=== PATIENT | male | born 1965 | race Two or more races ===

== ENCOUNTER 2021-10-27 10:22 | Outpatient (RCR) | payer MEDICARE, BC, SELFPAY ==
--- NOTE | ~2021-10-27 | XR_ITS ---
EXAMINATION: XR FOOT, RIGHT CLINICAL INFORMATION: Nonhealing wound right foot. COMPARISON: None TECHNIQUE: AP, lateral, and oblique views of the right foot. FINDINGS: There is a soft tissue ill-defined opacity and skin thickening along the right lateral heel and likely soft tissue bandage but no soft tissue mass or gas collection seen. There is no periosteal elevation or thickening. The rest of the right foot is normal. The ankle mortise and subtalar joints are normal. There is a small retrocalcaneal enthesophyte XR/XR foot RT min 3V IMPRESSION: Soft tissue irregularity along the lateral heel likely nonhealing wound. However, there is no gas or mass seen to suspect any infectious collection or abscess. No periosteal thickening either involving the calcaneum or the foot bones. There are vascular calcifications present throughout the foot.
== END 2022-02-03 13:34 | disposition home or self-care (01) ==
LOC: HO.WCC 10:22
PROVIDERS: Visit Provider Physician Assistant
DX: E11.621 Type 2 diabetes mellitus with foot ulcer (principal); L97.412 Non-pressure chronic ulcer of right heel and midfoot with fat layer exposed; E11.51 Type 2 diabetes mellitus with diabetic peripheral angiopathy without gangrene; E11.22 Type 2 diabetes mellitus with diabetic chronic kidney disease; I12.0 Hypertensive chronic kidney disease with stage 5 chronic kidney disease or end stage renal disease; N18.6 End stage renal disease; Z95.1 Presence of aortocoronary bypass graft
CPT/HCPCS: 11042; 73630; 99213

== ENCOUNTER 2021-11-13 00:40 | Inpatient (IN) | payer MEDICARE, MEDICAID, SELFPAY ==
[2021-11-13] VITALS (39 sets, daily range): BP systolic 69–166; BP diastolic 25–77; PULSE 62–190; RESP 12–30; TEMP 36.2–36.7; O2SAT 96–100; BMI 33.5; BMI 32.5
--- NOTE | ~2021-11-13 | XR_ITS ---
EXAMINATION: XR FOOT, LEFT XR FOOT, RIGHT CLINICAL INFORMATION: Osteomyelitis COMPARISON: 11/03/2021 TECHNIQUE: 3 views of each foot FINDINGS: Left foot: No fracture or dislocation. Alignment is anatomic. Joint spaces are maintained. Diffuse vascular calcifications. No ankle joint effusion. Heel spurs noted. No osseous erosion. Right foot: No fracture or dislocation. Persistent soft tissue irregularity along the lateral aspect of the heel. No osseous erosion. Joint spaces are maintained. Soft tissue swelling of the forefoot. XR/XR foot LT 2V IMPRESSION: Forefoot soft tissue swelling on the right with soft tissue irregularity at the lateral hindfoot, as seen on prior. Swelling is increased from prior. No associated acute osseous abnormality. No osseous erosion. No acute abnormality of the left foot.
--- NOTE | ~2021-11-13 | XR_ITS ---
EXAMINATION: XR FOOT, LEFT XR FOOT, RIGHT CLINICAL INFORMATION: Osteomyelitis COMPARISON: 11/03/2021 TECHNIQUE: 3 views of each foot FINDINGS: Left foot: No fracture or dislocation. Alignment is anatomic. Joint spaces are maintained. Diffuse vascular calcifications. No ankle joint effusion. Heel spurs noted. No osseous erosion. Right foot: No fracture or dislocation. Persistent soft tissue irregularity along the lateral aspect of the heel. No osseous erosion. Joint spaces are maintained. Soft tissue swelling of the forefoot. XR/XR foot RT 2V IMPRESSION: Forefoot soft tissue swelling on the right with soft tissue irregularity at the lateral hindfoot, as seen on prior. Swelling is increased from prior. No associated acute osseous abnormality. No osseous erosion. No acute abnormality of the left foot.
--- NOTE | ~2021-11-13 | XR_ITS ---
EXAMINATION: XR CHEST CLINICAL INFORMATION: Rule out pulmonary edema COMPARISON: None TECHNIQUE: Frontal view of the chest was obtained. FINDINGS: Median sternotomy wires appear intact. The lungs are well expanded. There is no focal consolidation, edema, or effusion. No pneumothorax. The cardiomediastinal silhouette is within normal limits. No acute osseous abnormality. XR/XR chest 1V IMPRESSION: No acute pulmonary finding.
[2021-11-13] MEDS: Sodium Bicarbonate 8.4% 50 MEQ/50 ML SYRINGE IVPUSH (00:48)
--- NOTE | 2021-11-13 00:51 | ED_ITS ---
HPI - General Adult General Chief complaint: Arrhythmia/Palpitations Stated complaint: VTACH Time Seen by Provider: 11/13/21 00:49 Source: EMS Mode of arrival: EMS Limitations: altered mental status History of Present Illness HPI narrative: Patient comes to the emergency room via EMS. Today around 21:30, patient told his family that he was not feeling well. Patient found him unresponsive, uncomfortable, pale and diaphoretic around midnight. EMS was called for a diabetic emergency . When EMS arrived and did an EKG leads, the rhythm showed V-tach. EMS was unable to get IV access. On arrival to the emergency room, Patient's blood pressure in the low 80s, diaphoretic, pale, very lethargic, pulse present, rhythm is sustained V-tach, heart rate 200, patient was emergently cardioverted with 120 joules. Patient is known to be a dialysis patient. Related Data Allergies Allergy/AdvReac Type Severity Reaction Status Date / Time No Known Allergies Allergy Verified 11/13/21 01:17 Review of Systems Review of Systems: Yes Unobtainable due to mental condition [facility] Past Medical History Medical History (Updated 11/13/21 @ 02:24 by Karen Burroughs MD) Chronic kidney disease Type 2 diabetes mellitus Social History Social History Advance Directives: No Physical Exam ED Vital Signs: Vital Signs - 24 hr 11/13/21 00:54 11/13/21 01:01 11/13/21 01:06 Temperature Pulse Rate 190 H 94 94 Respiratory Rate 24 H 30 H 24 H Blood Pressure 103/67 139/64 123/61 Pulse Oximetry 100 Oxygen Delivery Method Non-Rebreather Mask Non-Rebreather Mask Oxygen Flow Rate 15 15 11/13/21 02:10 11/13/21 02:21 Temperature 98.1 F Pulse Rate 81 78 Respiratory Rate 20 18 Blood Pressure 94/45 L 100/52 L Pulse Oximetry 100 Oxygen Delivery Method Nasal Cannula Non-Rebreather Mask Oxygen Flow Rate 15 15 BMI result Body Mass Index 33.5 Const Other: Appearance: Lethargic, only moaning to pain, ill looking Eyes: Pupils equal, round and reactive to light. ENT: Pharynx normal. Neck: Normal inspection. Neck supple. No lymph nodes noted. No crepitus CVS: Tachycardic Respiratory: No respiratory distress. Breath sounds normal. No Wheezing. No rales Abdomen: Soft and nontender. No rigidity. No distention. Skin: Pale, diffusely diaphoretic Extremities: No lower extremity edema. No Lacerations. No Rash Neuro lethargic Psych: Lethargic Course Course Course Narrative: On arrival, patient had to be emergently cardioverted with 120 joules. Patient did not have any access, there were no IOs available in the ED, patient had to be cardioverted without any sedation. A few seconds after the cardioversion, patient's heart rate improved to the low 80s, blood pressure 118/57. Patient is now alert, talking, patient states that he did not miss dialysis, last dialysis was 2 days ago. He is due for dialysis today. IV line was obtained in the left external jugular, 150 mg of IV amiodarone were given and is now on amiodarone drip. Patient states that he feels much better. All of the labs are pending. We do not know if patient's potassium is elevated leading to V tack, patient was given 2 g of calcium gluconate and bicarbonate prophylactically while we get the lab results I discussed the patient with Dr. Means, patient will be started on heparin, the defibrillation pads need to stay on all night. Patient remains stable and at this time asymptomatic. I discussed the patient with Dr. Bobo, patient being admitted to the ICU. Patient's white blood cell count and lactic acid are elevated and initially had low blood pressure. Infection is not suspected, sepsis is not suspected. This is secondary to the prolonged episode of ventricular tachycardia and cardioversion. Medical Decision Making Lab Data Result diagrams: 11/13/21 00:56 11/13/21 00:56 Labs: Lab Results 11/13/21 11/13/21 11/13/21 Range/Units 00:56 00:56 00:56 WBC 22.1 H (4.8-10.8) X10*3/uL RBC 3.56 L (4.60-5.80) X10*6/uL Hgb 10.6 L (14.0-18.0) g/dl Hct 34.0 L (42.0-52.0) % MCV 95.5 (80.0-98.0) fL MCH 29.8 (27.0-33.0) pg MCHC 31.2 (31.0-36.0) g/dl RDW 13.2 (11.0-16.0) % Plt Count 238 (160-400) X10*3/uL MPV 10.4 (9.4-12.4) fL Immature Gran % (Auto) Cancelled Neut % (Auto) Cancelled Lymph % (Auto) Cancelled [place] % (Auto) Cancelled Eos % (Auto) Cancelled Baso % (Auto) Cancelled Lymph # (Auto) Cancelled [place] # (Auto) Cancelled Eos # (Auto) Cancelled Baso # (Auto) Cancelled Abs Immat Gran (auto) Cancelled Absolute Neuts (auto) Cancelled Absolute Nucleated RBC 0.060 H (0.0-0.012) X10*3/uL Nucleated RBC % (auto) 0.3 H (0.0-0.2) /100WBC Neutrophils % (Manual) 76 H (45-73) % Band Neutrophils % 4 (3-5) % Lymphocytes % (Manual) 8 L (20-40) % Atypical Lymphs % (Man) 4 (0-6) % Monocytes % (Manual) 5 (2-11) % Metamyelocytes % 1 % Myelocytes % 2 % Abs Neuts (Manual) 17.7 H (2.0-8.3) X10*3/uL Lymphocytes # (Manual) 1.8 (1.2-4.9) X10*3/uL Atyp Lymphs # (Manual) 0.9 x10*3/uL Monocytes # (Manual) 1.1 (0.1-1.2) X10*3/uL Metamyelocytes # 0.2 X10*3/uL Myelocytes # 0.4 X10*/uL Platelet Estimate NORMAL (NORMAL) Plt Morphology Comment NORMAL RBC Morphology NOTED Polychromasia 1+ (0-2) /OIF Macrocytosis 1+ (5-14) /OIF Tear Drop Cells 1+ (0-2) /OIF Ovalocytes 1+ (5-14) /OIF Obey Cells 3+ (>5) /OIF Acanthocytes (Spur) 1+ (0-2) /OIF PT 20.6 H (10.0-13.1) SEC INR 1.8 H (0.9-1.1) Sodium 140 (135-145) mmol/L Potassium 5.4 H (3.3-5.1) mmol/L Chloride 96 (96-108) mmol/L Carbon Dioxide 12 L (22-29) mmol/L Anion Gap 37 H (12-20) BUN 26 H (9-16) mg/dL Creatinine 7.39 H* (0.5-1.4) mg/dL Estim Creat Clear Calc 12.4 Estimated GFR 8 Random Glucose 77 (60-115) mg/dL Lactic Acid (0.5-2.0) mmol/L Calcium 8.8 (8.4-10.2) mg/dL Magnesium 2.4 (1.6-2.6) mg/dL Total Bilirubin 1.4 H (0.0-1.0) mg/dL Direct Bilirubin 0.9 H (0.0-0.5) mg/dL AST 244 H (5-37) U/L ALT 155 H (0-40) U/L Alkaline Phosphatase 146 H (39-117) U/L Troponin I High Sens (<3.5-35.0) ng/L B-Natriuretic Peptide (<100) pg/mL Total Protein 7.3 (6.5-8.0) g/dL Albumin 3.4 L (3.5-5.0) g/dL COVID-19 (ANJEL) (Negative) COVID-19 Clin Com 11/13/21 11/13/21 11/13/21 Range/Units 00:56 00:56 00:56 WBC (4.8-10.8) X10*3/uL RBC (4.60-5.80) X10*6/uL Hgb (14.0-18.0) g/dl Hct (42.0-52.0) % MCV (80.0-98.0) fL MCH (27.0-33.0) pg MCHC (31.0-36.0) g/dl RDW (11.0-16.0) % Plt Count (160-400) X10*3/uL MPV (9.4-12.4) fL Immature Gran % (Auto) Neut % (Auto) Lymph % (Auto) [place] % (Auto) Eos % (Auto) Baso % (Auto) Lymph # (Auto) [place] # (Auto) Eos # (Auto) Baso # (Auto) Abs Immat Gran (auto) Absolute Neuts (auto) Absolute Nucleated RBC (0.0-0.012) X10*3/uL Nucleated RBC % (auto) (0.0-0.2) /100WBC Neutrophils % (Manual) (45-73) % Band Neutrophils % (3-5) % Lymphocytes % (Manual) (20-40) % Atypical Lymphs % (Man) (0-6) % Monocytes % (Manual) (2-11) % Metamyelocytes % % Myelocytes % % Abs Neuts (Manual) (2.0-8.3) X10*3/uL Lymphocytes # (Manual) (1.2-4.9) X10*3/uL Atyp Lymphs # (Manual) x10*3/uL Monocytes # (Manual) (0.1-1.2) X10*3/uL Metamyelocytes # X10*3/uL Myelocytes # X10*/uL Platelet Estimate (NORMAL) Plt Morphology Comment RBC Morphology Polychromasia /OIF Macrocytosis /OIF Tear Drop Cells /OIF Ovalocytes /OIF Obey Cells /OIF Acanthocytes (Spur) /OIF PT (10.0-13.1) SEC INR (0.9-1.1) Sodium (135-145) mmol/L Potassium (3.3-5.1) mmol/L Chloride (96-108) mmol/L Carbon Dioxide (22-29) mmol/L Anion Gap (12-20) BUN (9-16) mg/dL Creatinine (0.5-1.4) mg/dL Estim Creat Clear Calc Estimated GFR Random Glucose (60-115) mg/dL Lactic Acid 14.2 H* (0.5-2.0) mmol/L Calcium (8.4-10.2) mg/dL Magnesium (1.6-2.6) mg/dL Total Bilirubin (0.0-1.0) mg/dL Direct Bilirubin (0.0-0.5) mg/dL AST (5-37) U/L ALT (0-40) U/L Alkaline Phosphatase (39-117) U/L Troponin I High Sens 22.8 (<3.5-35.0) ng/L B-Natriuretic Peptide 558 H (<100) pg/mL Total Protein (6.5-8.0) g/dL Albumin (3.5-5.0) g/dL COVID-19 (ANJEL) Negative (Negative) COVID-19 Clin Com See Note Critical Care Time Critical Care Time Critical Care Time: Yes Total Critical Care Time: 60 Attestation: I have personally provided critical care time. Time includes review of lab data, radiology results, discussion with consultants, and monitoring for potential decompensation. Intervention performed as documented. Discharge Plan Discharge Clinical Impression: Ventricular tachycardia Patient Disposition: Admitted As Inpatient
[2021-11-13] MEDS: Calcium Gluconate/NaCl,Iso-Osm 2 GM/100 ML PLAST..BAG IV (01:00)
--- NOTE | 2021-11-13 01:01 | PC.NURSE ---
Addendum entered by Elizabet Hackett 11/13/21 01:04: 0046 Amio 150 mg given by JUAN Andujar Original Note: 0038 EMS arrives to room 4, pt found to be in VTach @ 200 bpm 0040 Pt sync cardioverted @ 150j, into a NSR @ 90 bpm. 0045 IO fail to right tib/fib by YANNICK Manley 0046 IV to left EJ established by MD Caldera, labs obtained 0048 Pt medicated with 1 amp of Sodium Bicarb per MD Burroughs request 0053 IV to right wrist 20g established by this RN 0100 2 gm Calcium Gluconate infusing per verbal order by MD Burroughs
--- NOTE | 2021-11-13 01:04 | PC.NURSE ---
POC 84 at 0058
[2021-11-13 01:18] LABS: Hemoglobin 10.6 g/dl (14.0-18.0); Mean Corpuscular HGB Conc 31.2 g/dl (31.0-36.0); Mean Corpuscular Hemoglobin 29.8 pg (27.0-33.0); Mean Corpuscular Volume 95.5 fL (80.0-98.0); Mean Platelet Volume 10.4 fL (9.4-12.4); NRBC Pct Auto 0.3 /100WBC (0.0-0.2); Platelet Count 238 X10*3/uL (160-400); Red Blood Count 3.56 X10*6/uL (4.60-5.80); Red Cell Distribution Width 13.2 % (11.0-16.0); White Blood Count 22.1 X10*3/uL (4.8-10.8)
[2021-11-13] MEDS: Amiodarone HCL 900 MG in 0.9 % Sodium Chloride 500 ML 34.53 MG IVCONT (01:19)
[2021-11-13] MEDS: 0.9 % Sodium Chloride 1,000 ML 999 ML IVCONT ×2 (01:19→02:45)
[2021-11-13 01:27] LABS: INTERNATIONAL NORM RATIO 1.8 (0.9-1.1); Prothrombin Time 20.6 SEC (10.0-13.1)
--- NOTE | 2021-11-13 01:41 | PC.NURSE ---
Pt arrived to our facility still in vtach. Placed on Zoll and pt was in shockable rhythm. Pt cardioverted to normal sinus rhythm with a rate of 90 bpm. IV access established in the right EJ and right wrist. Pt currently being infused with amiodarone and calcium gluconate. Pt is resting in bed CAOx3.
[2021-11-13 01:42] LABS: B Type Natriuretic Peptide 558 pg/mL (<100); Troponin-I High Sensitivity 22.8 ng/L (<3.5-35.0)
[2021-11-13 01:44] LABS: Alanine Aminotransferase 155 U/L (0-40); Albumin Level 3.4 g/dL (3.5-5.0); Alkaline Phosphatase 146 U/L (39-117); Anion Gap 37 (12-20); Aspartate Amino Transferase 244 U/L (5-37); Bilirubin Direct 0.9 mg/dL (0.0-0.5); Bilirubin Total 1.4 mg/dL (0.0-1.0); Blood Urea Nitrogen 26 mg/dL (9-16); Calcium 8.8 mg/dL (8.4-10.2); Carbon Dioxide 12 mmol/L (22-29); Chloride 96 mmol/L (96-108); Creatinine Clr Calc Pharmacy 12.4; Estimated Glomerular Filt Rate 8; Glucose Random 77 mg/dL (60-115); Magnesium 2.4 mg/dL (1.6-2.6); Potassium 5.4 mmol/L (3.3-5.1); Sodium 140 mmol/L (135-145); Total Protein 7.3 g/dL (6.5-8.0)
[2021-11-13 01:48] LABS: Lactic Acid 14.2 mmol/L (0.5-2.0)
[2021-11-13 01:51] LABS: COVID-19 Test Negative (Negative)
[2021-11-13 02:09] LABS: Atypical Lymph Absolute Manual 0.9 x10*3/uL; Atypical Lymphs Percent Manual 4 % (0-6); Band Neutrophils Percent 4 % (3-5); Lymphocytes Absolute Manual 1.8 X10*3/uL (1.2-4.9); Lymphocytes Percent Manual 8 % (20-40); Metamyelocytes Absolute 0.2 X10*3/uL; Metamyelocytes Percent 1 %; Monocytes Absolute Manual 1.1 X10*3/uL (0.1-1.2); Monocytes Percent Manual 5 % (2-11); Myelocytes Absolute 0.4 X10*/uL; Myelocytes Percent 2 %; Neutrophils Absolute Manual 17.7 X10*3/uL (2.0-8.3); Neutrophils Percent Manual 76 % (45-73)
[2021-11-13 02:10] LABS: Macrocytosis 1+ (5-14) /OIF; Platelet Estimate NORMAL (NORMAL); Platelet Morphology Comment NORMAL; RBC Morphology NOTED
[2021-11-13 02:11] LABS: Acanthocytes 1+ (0-2) /OIF; Burr Cells 3+ (>5) /OIF; Ovalocytes 1+ (5-14) /OIF; Polychromasia 1+ (0-2) /OIF; Tear Drop Cells 1+ (0-2) /OIF
[2021-11-13 02:39] LABS: Partial Thromboplastin Time 34.6 SEC (26.0-36.4)
[2021-11-13 02:52] LABS: Glucose, Whole Blood 107 mg/dL (60-115)
--- NOTE | 2021-11-13 03:38 | PM.CCHP ---
History of Present Illness Date of Service: 11/13/21 Attending physician on admission: Armando Bobo Chief Complaint: cardiac arrhythmia The patient is a 55-year-old? male? with past medical history of end-stage renal disease on hemodialysis (M,W,F), CAD status post CABG x3 with mitral valve annuloplasty,? diabetes mellitus, ischemic cardiomyopathy? and chronic right heel wound who? presented to the emergency room? via EMS after being found unresponsive.? According to EMS, the patient's found him unresponsive, pale and diaphoretic around midnight, ? when placed on? EKG rhythm showed V-tachycardia.? On arrival to the emergency room,? patient? systolic blood pressure in the low 80s, diaphoretic, pale,? lethargic,? pulse present and rhythm was sustained V-tach heart rate to 200s.? He was emergently cardioverted? with 120 joules. ? After cardioversion the patient is hemodynamically stable and asymptomatic.? Cardiology was consulted by ED physician,? and advised to start patient on amiodarone, heparin? drip and to keep it for defibrillation pads on.? ?Laboratory data was significant for WBC 22.1,? hemoglobin 10.6, hematocrit 34,? potassium 5.4, serum bicarb 12, anion gap 37, BUN 26, creatinine 7.39, lactic acid 14.2, total bilirubin 1.4, AST 244, ALT 155, alk-phos 146, BNP 558, albumin 3.4 Imaging:? ?Chest? x-ray:? no acute findings Review of Systems Constitutional: Constitutional: Denies body ache(s), Denies chills, Reports fatigue, Reports lethargy and Reports weakness Eyes: Eyes: Denies blurry vision and Denies loss of vision ENT: Reports dizziness Cardiovascular: Cardiovascular: Denies chest pain, Reports rapid heart rate, Reports irregular heart rhythm, Denies Loss of Consciousness and Reports dyspnea Respiratory: Respiratory: Reports dyspnea Gastrointestinal: Gastrointestinal: Denies diarrhea, Denies nausea and Denies vomiting Neurologic: Reports dizziness, Denies loss of vision and Reports weakness Endocrine: Endocrine: Reports fatigue [facility] Past Medical History Medical History (Updated 11/13/21 @ 03:47 by Zana Anand NP) CAD (coronary artery disease) Cardiomyopathy Chronic kidney disease End stage renal disease Mitral valve regurgitation Nonhealing wound of heel Type 2 diabetes mellitus Surgical History Surgical History (Updated 11/13/21 @ 03:47 by Zana Anand NP) Hx of CABG Social History Social History Advance Directives: No Meds Allergies Allergy/AdvReac Type Severity Reaction Status Date / Time No Known Allergies Allergy Verified 11/13/21 01:17 Active Medications: Current Medications Amiodarone HCl 900 mg/ Sodium (Chloride) 518 mls @ 34.533 mls/hr IVCONT .Q15H1M VINCENZO; Protocol Last Admin: 11/13/21 01:19 Dose: 1 mg/min, 34.53 mls/hr Heparin Sodium/Sodium Chloride (Heparin Sodium,Porcine/1/2ns) 25,000 unit in 250 mls @ 0 mls/hr IVCONT .Q0M VINCENZO; Protocol Norepinephrine Bitartrate (Levophed) 8 mg in 250 mls @ 0 mls/hr IVCONT .Q0M VINCENZO; Protocol Vancomycin HCl 1,000 mg/ (Sodium Chloride) 270 mls @ 270 mls/hr IV ONCE ONE Stop: 11/13/21 04:11 Piperacillin Sod/Tazobactam (Sod 4.5 gm/ Sodium Chloride) 100 mls @ 200 mls/hr IV ONCE ONE Stop: 11/13/21 03:41 Pharmacy Consult (Consult Rx Vancomycin Dosing) 1 each MISCELLANE DAILY PRN PRN Reason: Consult order Physical Exam Vital Signs: Vital Signs: Last Vital Signs Temp 98.1 F 11/13/21 02:21 Pulse 71 11/13/21 02:51 Resp 20 11/13/21 02:51 BP 88/45 L 11/13/21 02:51 Pulse Ox 98 11/13/21 02:51 O2 Del Method 11/13/21 02:51 O2 Flow Rate 4 11/13/21 02:51 BMI result Body Mass Index 33.5 Constitutional: Alert, in no distress. Sitting comfortably on ED stretcher. Mental Status: Oriented to person, place and time. Head: Normocephalic. Eyes: Pupils are equal, round and reactive to light. Extraocular muscles intact. Ear, Nose and Throat: Oropharynx clear, mucous membranes moist. Ears and nose without masses, lesions or deformities. Trachea midline. Neck: Supple, Full range of motion. Respiratory: lungs CTA.? Minor increased work of breathing.? Cardiovascular: sinus rhythm on tele. S1 S2 regular. No murmurs, rubs or gallops. Gastrointestinal: Abdomen soft, non-tender, non-distended. Normal bowel sounds. Neurologic: Cranial nerves II-XII grossly intact. No focal neurological deficits. Moves all extremities spontaneously. Sensation intact bilaterally. Skin: Right heel wound. Musculoskeletal: No cyanosis or clubbing. No gross deformities. Normal range of motion. Psychiatric: Normal mood and affect Results Labs CBC and Chem 7: 11/13/21 00:56 11/13/21 00:56 Labs: Laboratory Results - last 24 hr 11/13/21 11/13/21 11/13/21 00:56 00:56 00:56 MCV 95.5 MCH 29.8 MCHC 31.2 RDW 13.2 Plt Count 238 MPV 10.4 Immature Gran % (Auto) Cancelled Neut % (Auto) Cancelled Lymph % (Auto) Cancelled [place] % (Auto) Cancelled Eos % (Auto) Cancelled Baso % (Auto) Cancelled Lymph # (Auto) Cancelled [place] # (Auto) Cancelled Eos # (Auto) Cancelled Baso # (Auto) Cancelled Abs Immat Gran (auto) Cancelled Absolute Neuts (auto) Cancelled Absolute Nucleated RBC 0.060 H Nucleated RBC % (auto) 0.3 H Neutrophils % (Manual) 76 H Band Neutrophils % 4 Lymphocytes % (Manual) 8 L Atypical Lymphs % (Man) 4 Monocytes % (Manual) 5 Metamyelocytes % 1 Myelocytes % 2 Abs Neuts (Manual) 17.7 H Lymphocytes # (Manual) 1.8 Atyp Lymphs # (Manual) 0.9 Monocytes # (Manual) 1.1 Metamyelocytes # 0.2 Myelocytes # 0.4 Platelet Estimate NORMAL Plt Morphology Comment NORMAL RBC Morphology NOTED Polychromasia 1+ (0-2) Macrocytosis 1+ (5-14) Tear Drop Cells 1+ (0-2) Ovalocytes 1+ (5-14) [place] Cells 3+ (>5) Acanthocytes (Spur) 1+ (0-2) Smear Path Review Cancelled PT 20.6 H INR 1.8 H APTT 34.6 Anion Gap 37 H Estim Creat Clear Calc 12.4 Estimated GFR 8 POC Glucose Random Glucose 77 Lactic Acid Calcium 8.8 Magnesium 2.4 Total Bilirubin 1.4 H Direct Bilirubin 0.9 H AST 244 H ALT 155 H Alkaline Phosphatase 146 H B-Natriuretic Peptide Total Protein 7.3 Albumin 3.4 L COVID-19 (ANJEL) COVID-19 Clin Com 11/13/21 11/13/21 11/13/21 00:56 00:56 00:56 MCV MCH MCHC RDW Plt Count MPV Immature Gran % (Auto) Neut % (Auto) Lymph % (Auto) [place] % (Auto) Eos % (Auto) Baso % (Auto) Lymph # (Auto) [place] # (Auto) Eos # (Auto) Baso # (Auto) Abs Immat Gran (auto) Absolute Neuts (auto) Absolute Nucleated RBC Nucleated RBC % (auto) Neutrophils % (Manual) Band Neutrophils % Lymphocytes % (Manual) Atypical Lymphs % (Man) Monocytes % (Manual) Metamyelocytes % Myelocytes % Abs Neuts (Manual) Lymphocytes # (Manual) Atyp Lymphs # (Manual) Monocytes # (Manual) Metamyelocytes # Myelocytes # Platelet Estimate Plt Morphology Comment RBC Morphology Polychromasia Macrocytosis Tear Drop Cells Ovalocytes Obey Cells Acanthocytes (Spur) Smear Path Review PT INR APTT Anion Gap Estim Creat Clear Calc Estimated GFR POC Glucose Random Glucose Lactic Acid 14.2 H* Calcium Magnesium Total Bilirubin Direct Bilirubin AST ALT Alkaline Phosphatase B-Natriuretic Peptide 558 H Total Protein Albumin COVID-19 (ANJEL) Negative COVID-19 Clin Com See Note 11/13/21 02:48 MCV MCH MCHC RDW Plt Count MPV Immature Gran % (Auto) Neut % (Auto) Lymph % (Auto) [place] % (Auto) Eos % (Auto) Baso % (Auto) Lymph # (Auto) [place] # (Auto) Eos # (Auto) Baso # (Auto) Abs Immat Gran (auto) Absolute Neuts (auto) Absolute Nucleated RBC Nucleated RBC % (auto) Neutrophils % (Manual) Band Neutrophils % Lymphocytes % (Manual) Atypical Lymphs % (Man) Monocytes % (Manual) Metamyelocytes % Myelocytes % Abs Neuts (Manual) Lymphocytes # (Manual) Atyp Lymphs # (Manual) Monocytes # (Manual) Metamyelocytes # Myelocytes # Platelet Estimate Plt Morphology Comment RBC Morphology Polychromasia Macrocytosis Tear Drop Cells Ovalocytes Obey Cells Acanthocytes (Spur) Smear Path Review PT INR APTT Anion Gap Estim Creat Clear Calc Estimated GFR POC Glucose 107 Random Glucose Lactic Acid Calcium Magnesium Total Bilirubin Direct Bilirubin AST ALT Alkaline Phosphatase B-Natriuretic Peptide Total Protein Albumin COVID-19 (ANJEL) COVID-19 Clin Com Imaging Radiologist's Impressions: Impressions Chest X-Ray 11/13/21 02:10 IMPRESSION: No acute pulmonary finding. Foot X-Ray 11/13/21 03:10 IMPRESSION: Forefoot soft tissue swelling on the right with soft tissue irregularity at the lateral hindfoot, as seen on prior. Swelling is increased from prior. No associated acute osseous abnormality. No osseous erosion. No acute abnormality of the left foot. Foot X-Ray 11/13/21 03:10 IMPRESSION: Forefoot soft tissue swelling on the right with soft tissue irregularity at the lateral hindfoot, as seen on prior. Swelling is increased from prior. No associated acute osseous abnormality. No osseous erosion. No acute abnormality of the left foot. Assessment and Plan (1) Ventricular tachycardia: Status: Acute (2) End stage renal disease: Status: Acute (3) Hypotension: Status: Acute (4) Elevated lactic acid level: Status: Acute (5) Acute respiratory failure with hypoxia: Status: Acute (6) Nonhealing wound of heel: Status: Acute (7) Leukocytosis: Status: Acute Plan ?The patient is a 55-year-old? past medical history of end-stage renal disease ( dialysis M,W,F),? CAD status post CABG 3? with? mitral valve annuloplasty,? diabetes mellitus, ischemic cardiomyopathy and chronic right heel wound? who presented to the emergency room and ventricular tachycardia status post cardioversion? Neuro:? no acute issues?? Cardiac: ?Ventricular tachycardia:? patient came in into the emergency room and a white complex tachycardia, per EMS he was also in V-tach in route to the hospital.? He was cardioverted with 120 joules.? Post cardioversion he has sinus rhythm? an asymptomatic.? According to [facility]? records? patient has a history of going into V-tach in the past.? Cardiology, Dr Cowart? consulted,? advised for? amiodarone drip and heparin drip.? ?Lactic acid:? elevated lactate likely due to? underlying cardiac? arrhythmia.? No evidence of severe septic shock ?Hypotension:? hypotension? could be related to multiple? issues cardiac arrhythmia, amiodarone drip and dialysis.? Started on Levophed. Should resolve after dialysis.? Wean off pressors as? tolerated Pulmonary:?? Acute hypoxic respiratory failure-? this is likely due to acute decompensation? and ? and requirement of dialysis.? Chest x-ray was negative? for acute findings. Should? resolved after dialysis Renal:? ESRD- ? potassium 5.4,? serum bicarb 12, BUN 26, and 7.39,? patient states he went to his dialysis treatment on Tuesday,? but has felt weak since?.? Nephrology? was consulted, spoke with Dr Garza,? who did not? advise for emergent dialysis, okay to have dialysis in the morning.? GI:? No acute issues.?? Endo:? No acute issues.?? ID:?? Leukocytosis-? patient?s chest x-ray? with no acute findings,? does not complain of any abdominal issues.? Has chronic? diabetic right? heel? wound.? Will obtain? x-ray of the right foot.? Treat with empiric? vanco and Zosyn.? Obtain blood cultures Heme/Onc:? No acute issues. Psych:? No acute issues. Miscellaneous:? No acute issues. Prophylaxis:? IV Heparin,? does not require GI prophylaxis Diet: ? NPO CODE: FULL Critical care time: x 90 critical care time Case discussed with attending Dr Bobo? Critical Care Time Critical Care Time (minutes): 60
[2021-11-13] MEDS: Heparin Sodium,Porcine/1/2NS 25,000 UNIT/250 ML IV.SOLN 14 UNIT IVCONT (03:51)
[2021-11-13] MEDS: Piperacillin Sodium/Tazobactam 4.5 GM in 0.9 % Sodium Chloride 100 ML IV (04:00)
[2021-11-13 04:04] LABS: Lactic Acid 9.7 mmol/L (0.5-2.0)
--- NOTE | 2021-11-13 04:06 | PC.NURSE ---
ICU provider directed this RN to start Levophed drip at 0.03 mcg/kg/min. Levophed increased to 0.05 mcg/kg/min at this time due to hypotension with MAP <65.
[2021-11-13] MEDS: vancomycin HCL 1,000 MG in 0.9 % Sodium Chloride 250 ML 270 MG IV (04:36)
[2021-11-13 05:41] LABS: Reflex Lactate? Lactic Acid Added
--- NOTE | 2021-11-13 06:13 | PC.NURSE ---
ADMIT TO 255-1 VIA STRETCHER APPROX 0445...AWAKE..ALERT..ORIENTED X3....O2 4 L/M VIA CANNULA...DENIES SOB...AMIODARONE DRIP 1 MG/MIN..HEPARIN DRIP 14 UNITS/KG/HR...LEVOPHED DRIP TITRATED TO 0.08 MCG/KG/MIN....NSR..RARE PAC.....TAKING FEW ICE CHIPS W/O NAUSEA..NPO BUT ICE CHIPSMOK PER ICU [facility]....6AM LABS HELD BY [facility]ER..FOR DIALYSIS THIS AM AND LABS POST-DIALYSIS PER PA..PATIENT DENIES DISCOMFORT... IO NEEDLE REMOVED INTACT RIGHT CERDA
[2021-11-13] MEDS: fentaNYL citrate/PF 100 MCG/2 ML VIAL 25 MCG IVPUSH (07:42)
[2021-11-13 09:04] LABS: Glucose, Whole Blood 84 mg/dL (60-115)
--- NOTE | 2021-11-13 09:45 | PHA.MEDREC ---
Pharmacy Consult ? Medication Reconciliation Pharmacy has completed the medication reconciliation. Patient was poor historian of medications. Contacted pharmacy to cross reference the medications he could name. Patient stated that they take Eliquis 5mg once a day, however script is written for twice a day. Patient's reasoning was because of dialysis . Patient reports taking atorvastatin, however pharmacy claims he hasn't picked up a fill since 04/25/21. Patient also reports taking 40 units Lantus at bedtime, however claim history states for 50 units at bedtime. Patient also claims to take a short acting insulin (Humalog), however pharmacy claims the patient had never picked up the medication.
--- NOTE | 2021-11-13 10:11 | MHC.CM.PN ---
Met with pt and spouse Angelina to review d/c planning: pt resides with Angelina and drives self to HD at [facility] on ,,. He uses a walker to transfer and has a power scooter d/t lower extremity weakness. Pt has no services. PCP is a new provider from [facility] with an appt on 12/24. His previous provider was Dr. Garcia from [place] who has retired. HCP completed and in chart w/IMM. Spouse to transport pt home when medically cleared.
--- NOTE | 2021-11-13 11:00 | PM.CNNEP ---
History of Present Illness Reason for Consult Consult date: 11/13/21 Reason for consult: ESRD pt well know to me Chief Complaint Chief complaint: VTACH Review of Systems Review of Systems Yes Unobtainable due to mental condition Constitutional: Denies body ache(s), Denies chills, Reports fatigue, Reports lethargy and Reports weakness Eyes: Denies blurry vision and Denies loss of vision Reports dizziness Cardiovascular: Denies chest pain, Reports rapid heart rate, Reports irregular heart rhythm, Denies Loss of Consciousness and Reports dyspnea Respiratory: Reports dyspnea Gastrointestinal: Denies diarrhea, Denies nausea and Denies vomiting Reports dizziness, Denies loss of vision and Reports weakness Endocrine: Reports fatigue PMFSH Past Medical History Medical History (Updated 11/13/21 @ 03:47 by Zana Anand NP) CAD (coronary artery disease) Cardiomyopathy Chronic kidney disease End stage renal disease Mitral valve regurgitation Nonhealing wound of heel Type 2 diabetes mellitus Surgical History Surgical History (Updated 11/13/21 @ 03:47 by Zana Anadn NP) Hx of CABG Social History Social History Currently Displaying Signs/Symptoms of Drug Intoxication Withdrawal: No Advance Directives: No Current occupational status: disabled Meds Allergies Allergy/AdvReac Type Severity Reaction Status Date / Time No Known Allergies Allergy Verified 11/13/21 01:17 Active Medications: Current Medications Amiodarone HCl 900 mg/ Sodium (Chloride) 518 mls @ 34.533 mls/hr IVCONT .Q15H1M [facility]; Protocol Last Infusion: 11/13/21 07:19 Dose: 0.5 mg/min, 17.27 mls/hr Heparin Sodium/Sodium Chloride (Heparin Sodium,Porcine/1/2ns) 25,000 unit in 250 mls @ 0 mls/hr IVCONT .Q0M [facility]; Protocol Last Admin: 11/13/21 03:51 Dose: 14 units/kg/hr, 14 mls/hr Norepinephrine Bitartrate (Levophed) 8 mg in 250 mls @ 0 mls/hr IVCONT .Q0M [facility]; Protocol Last Titration: 11/13/21 09:05 Dose: 0.04 mcg/kg/min, 7.5 mls/hr Vancomycin HCl 1,000 mg/ (Sodium Chloride) 270 mls @ 270 mls/hr IV Q48H [facility] Pharmacy Consult (Consult Rx Vancomycin Dosing) 1 each MISCELLANE DAILY PRN PRN Reason: Consult order Home Medications Medication Instructions Recorded Confirmed Last Taken Type acetaminophen 500 mg tablet 500 - 1,000 mg PO Q6H PRN Pain 11/13/21 11/13/21 Unknown History apixaban 5 mg tablet (Eliquis) 1 tab PO DAILY 11/13/21 11/13/21 11/12/21 History aspirin 81 mg tablet,delayed 81 mg PO DAILY 11/13/21 11/13/21 11/12/21 History release atorvastatin 40 mg tablet 1 tab PO DAILY 11/13/21 11/13/21 11/12/21 History cholecalciferol (vitamin D3) 25 25 mcg PO DAILY 11/13/21 11/13/21 11/12/21 History mcg (1,000 unit) tablet (Vitamin D3) clotrimazole 2 % vaginal cream 1 appl topical DAILY 11/13/21 11/13/21 Unknown History insulin glargine 100 unit/mL (3 40 unit subcut BEDTIME 11/13/21 11/13/21 11/12/21 History mL) subcutaneous pen (Lantus Solostar U-100 Insulin) lidocaine-prilocaine 2.5 %-2.5 % 1 appl topical DAILY PRN Analgesia 11/13/21 11/13/21 Unknown History topical cream metoprolol succinate 50 mg 1 tab PO DAILY 11/13/21 11/13/21 11/12/21 History tablet,extended release 24 hr pantoprazole 40 mg tablet,delayed 1 tab PO DAILY@0630 11/13/21 11/13/21 11/12/21 History release Physical Exam Vital Signs: Last Vital Signs Temp 97.2 F 11/13/21 08:00 Pulse 66 11/13/21 10:00 Resp 12 11/13/21 10:00 BP 125/50 L 11/13/21 10:00 Pulse Ox 99 11/13/21 10:00 O2 Del Method 11/13/21 10:00 O2 Flow Rate 4 11/13/21 09:00 Oxygen Flow Rate 4 11/13/21 02:30 BMI result Body Mass Index 32.5 Const Other: Appearance: Lethargic, only moaning to pain, ill looking Eyes: Pupils equal, round and reactive to light. ENT: Pharynx normal. Neck: Normal inspection. Neck supple. No lymph nodes noted. No crepitus CVS: Tachycardic Respiratory: No respiratory distress. Breath sounds normal. No Wheezing. No rales Abdomen: Soft and nontender. No rigidity. No distention. Skin: Pale, diffusely diaphoretic Extremities: No lower extremity edema. No Lacerations. No Rash Neuro lethargic Psych: Lethargic Results Lab Results Result Diagrams: 11/13/21 00:56 11/13/21 00:56 Lab results: Chemistry 11/13/21 00:56 Sodium 140 Potassium 5.4 H Carbon Dioxide 12 L BUN 26 H Creatinine 7.39 H* Calcium 8.8 Hematology 11/13/21 00:56 WBC 22.1 H Hgb 10.6 L Plt Count 238 Assessment and Plan (1) Ventricular tachycardia: Status: Acute (2) End stage renal disease: Status: Acute HD AT [facility] MWF MISSED YESTERDAY WILL DO TODAY (3) Hypotension: Status: Acute Chief Complaint:? cardiac arrhythmia The patient is a 55-year-old? male? with past medical history of end-stage renal disease on hemodialysis (M,W,F), CAD status post CABG x3 with mitral valve annuloplasty,? diabetes mellitus, ischemic cardiomyopathy? and chronic right heel wound who? presented to the emergency room? via EMS after being found unresponsive.? According to EMS, the patient's found him unresponsive, pale and diaphoretic around midnight, ? when placed on? EKG rhythm showed V-tachycardia.? On arrival to the emergency room,? patient? systolic blood pressure in the low 80s, diaphoretic, pale,? lethargic,? pulse present and rhythm was sustained V-tach heart rate to 200s.? He was emergently cardioverted? with 120 joules. ? After cardioversion the patient is hemodynamically stable and asymptomatic.? Cardiology was consulted by ED physician,? and advised to start patient on amiodarone, heparin? drip and to keep it for defibrillation pads on.? (4) Elevated lactic acid level: Status: Acute (5) Acute respiratory failure with hypoxia: Status: Acute (6) Nonhealing wound of heel: Status: Acute (7) Leukocytosis: Status: Acute Plan ?The patient is a 55-year-old? past medical history of end-stage renal disease ( dialysis M,W,F),? CAD status post CABG 3? with? mitral valve annuloplasty,? diabetes mellitus, ischemic cardiomyopathy and chronic right heel wound? who presented to the emergency room and ventricular tachycardia status post cardioversion? Neuro:? no acute issues?? Cardiac: ?Ventricular tachycardia:? patient came in into the emergency room and a white complex tachycardia, per EMS he was also in V-tach in route to the hospital.? He was cardioverted with 120 joules.? Post cardioversion he has sinus rhythm? an asymptomatic.? According to [facility]? records? patient has a history of going into V-tach in the past.? Cardiology, Dr Trammellooty? consulted,? advised for? amiodarone drip and heparin drip.? ?Lactic acid:? elevated lactate likely due to? underlying cardiac? arrhythmia.? No evidence of severe septic shock ?Hypotension:? hypotension? could be related to multiple? issues cardiac arrhythmia, amiodarone drip and dialysis.? Started on Levophed. Should resolve after dialysis.? Wean off pressors as? tolerated Pulmonary:?? Acute hypoxic respiratory failure-? this is likely due to acute decompensation? and ? and requirement of dialysis.? Chest x-ray was negative? for acute findings. Should? resolved after dialysis Renal:? ESRD- ? potassium 5.4,? serum bicarb 12, BUN 26, and 7.39,? patient states he went to his dialysis treatment on Tuesday,? but has felt weak since?.? Nephrology? was consulted, spoke with Dr Garza,? who did not? advise for emergent dialysis, okay to have dialysis in the morning.? GI:? No acute issues.?? Endo:? No acute issues.?? ID:?? Leukocytosis-? patient?s chest x-ray? with no acute findings,? does not complain of any abdominal issues.? Has chronic? diabetic right? heel? wound.? Will obtain? x-ray of the right foot.? Treat with empiric? vanco and Zosyn.? Obtain blood cultures Heme/Onc:? No acute issues. Psych:? No acute issues. Miscellaneous:? No acute issues. Prophylaxis:? IV Heparin,? does not require GI prophylaxis Diet: ? NPO CODE: FULL Critical care time: x 90 critical care time Case discussed with attending Dr Bobo? Procedures Date of Service Date of Service: 11/13/21
[2021-11-13] MEDS: Heparin Sodium,Porcine 5,000 UNIT/ML VIAL 3800 UNIT IVPUSH (11:20)
[2021-11-13] MEDS: Heparin Sodium,Porcine/1/2NS 25,000 UNIT/250 ML IV.SOLN 15.52 UNIT IVCONT (11:21)
--- NOTE | 2021-11-13 11:33 | ECG_ITS ---
Test Reason : VT Blood Pressure : / mmHG Vent. Rate : 082 BPM Atrial Rate : 082 BPM P-R Int : 216 ms QRS Dur : 108 ms QT Int : 414 ms P-R-T Axes : 000 -52 093 degrees QTc Int : 483 ms Sinus rhythm with 1st degree A-V block Left axis deviation Inferior infarct , age undetermined Anterior infarct , age undetermined ST & T wave abnormality, consider lateral ischemia Abnormal ECG No previous ECGs available Referred By: Karen Burroughs Electronically Signed By:MARLENE VELEZ
--- NOTE | 2021-11-13 12:00 | CA_ITS ---
Transthoracic Echocardiogram Patient (Last, First, Middle): [place], Gender: Male Date of : 1965 Age: 56 Procedure Date: 11/13/2021 Procedure Type: Transthoracic Echocardiogram Location: ICU Height: 172.72 cm Weight: 96.62 kg BSA: 2.10 m2 Heart Rate: 68 bpm BP: 107 / 52 mmHg Armorer Technician: SB Referring MD: Armando Bobo MD Symptoms: vtach Study Quality: Adequate/Contrast ECG Rhythm: Sinus Conclusions: - Normal left ventricular cavity size. There is mildly increased left ventricular wall thickness. The left ventricular systolic function is mild to moderately decreased. The visually estimated ejection fraction is between 35-40%. - Spectral Doppler is indicative of a pseudonormal filling pattern. E/E prime ratio is >15, consistent with elevated filling pressures. - Mildly increased right ventricular cavity size. There is moderate to severely decreased right ventricular systolic function. - The left atrium is moderately dilated. The right atrium is mildly dilated. Findings Procedure Information Contrast agent, definity, is being given per protocol without apparent complications. Left Ventricle Normal left ventricular cavity size. There is mildly increased left ventricular wall thickness. The left ventricular systolic function is mild to moderately decreased. The visually estimated ejection fraction is between 35-40%. There is mild global hypokinesis. There is paradoxical septal motion consistent with post-operative status. Abnormal diastolic function is noted. Spectral Doppler is indicative of a pseudonormal filling pattern. E/E prime ratio is >15, consistent with elevated filling pressures. Right Ventricle Mildly increased right ventricular cavity size. There is moderate to severely decreased right ventricular systolic function. Atria The left atrium is moderately dilated. The right atrium is mildly dilated. Aortic Valve There is a normal trileaflet aortic valve. There is mild calcification of the aortic valve. There is mild thickening of the aortic valve. There is no aortic valve stenosis. There is no aortic valve regurgitation. Mitral Valve There is mild anterior mitral annular calcification. There is moderate mitral annular calcification. There is mild mitral valve regurgitation. There is no mitral valve stenosis. Pulmonic Valve Normal pulmonic valve structure and function. There is trace pulmonic valve regurgitation. Tricuspid Valve Normal tricuspid valve structure and function. There is mild to moderate tricuspid valve regurgitation. Normal right atrial pressure. There is no evidence of pulmonary hypertension. Great Vessels All visible segments of the aorta are normal in size. The visualized portions of the pulmonary artery and branches are normal. Venous The inferior vena cava is normal in size and collapses greater than 50% with inspiration. Pericardium/Pleural Normal pericardial structure. There is no evidence of pericardial effusion. Prior Study Comparison No prior study available for comparison. Measurements 2D Linear Measurements IVSd: 1.15 0.6-0.9/0.6-1.0 cm LVIDd: 5.34 3.9-5.3/4.2-5.9 cm LVIDd Index: 2.54 2.4-3.2/2.2-3.1 cm/m2 LVIDs: 3.73 2.0-3.6 cm LVPWd: 1.13 0.7-1.1 cm LA Diam: 4.80 2.7-3.8/3.0-4.0 cm LAIDs Index: 2.29 1.5-2.3 cm/m2 LV Mass: 301.78 67-162/88-224 g LV Mass Index: 143.71 43-95/49-115 g/m2 LVOT Diam: 2.30 3.0+(-)1.3 cm 2D Systolic Function EF 4C: 31.00 >55% EF 2C: 39.70 >55% EF BiP: 37.50 >55% Mitral Valve MV VTI: 0.39 MV Pk Wilmer: 1.39 MV Mn Wilmer: 0.76 MV Pk Grad: 8.00 MV Mn Grad: 3.00 MV Pk E: 1.39 MV PK A: 0.45 MV Decel Time: 229.00 E/A: 3.10 E'Lateral: 5.75 E'Medial: 3.12 E/E' Med: 44.60 E/E' Lat: 24.20 PHT: 67.00 MVA PHT: 3.28 MVA Continuity: 1.52 Decel [place]: 6.06 Aortic Valve AoV Pk Wilmer: 1.30 AoV Mn Wilmer: 0.92 AoV VTI: 0.26 AoV Pk Grad: 7.00 Aov Mn Grad: 4.00 NABEEL Cont.VTI: 2.30 LVOT LVOT Pk Wilmer: 0.78 LVOT Mn Wilmer: 0.54 LVOT VTI: 0.14 LVOT Pk Grad: 2.00 LVOT Mn Grad: 2.00 LVOT Diam: 2.30 LVOT Area: 4.15 Diastolic Function MV Pk E: 1.39 MV Pk A: 0.45 E/A: 3.10 E'Medial: 3.12 E/E' Med: 44.60 E' Laterial: 5.75 E/E' Lat: 24.20 Right Ventricle TAPSE (mm): 4.00 TVS' Wilmer: 3.10 Tricuspid Valve TR Pk Wilmer: 2.85 TR Pk Grad: 32.00 RA Press: 3.00 RVSP: 35.00 Great Vessels Aorta Sinus of Valsalva: 3.10 2.0-3.5 cm Ao Asc: 3.00 2.1-3.4 cm Ao Arch: 2.70 Ao Desc: 3.00 Pulmonary Valve PV Pk Wilmer: 0.88 Peak PV Grad: 3.00 Updated in Other Vendor System with Status of Final Pranav Means MD electronically signed on 11/14/2021 7:57:54 PM with status of Final
[2021-11-13 14:38] LABS: Basophils Absolute Auto 0.2 X10*3/uL (0.0-0.2); Basophils Percent Auto 0.5 % (0-2); Hematocrit 33.4 % (42.0-52.0); Imm Gran Pct Auto 4.3 % (0.0-0.4); Lymphocytes Percent Auto 2.6 % (20-40); MANUAL DIFF FLAG SCAN; Mean Corpuscular HGB Conc 32.9 g/dl (31.0-36.0); Mean Corpuscular Hemoglobin 29.9 pg (27.0-33.0); Mean Corpuscular Volume 90.8 fL (80.0-98.0); Mean Platelet Volume 10.7 fL (9.4-12.4); Monocytes Absolute Auto 1.4 X10*3/uL (0.1-1.2); Monocytes Percent Auto 3.5 % (2-11); NRBC Pct Auto 0.3 /100WBC (0.0-0.2); Neutrophils Absolute Auto 34.9 x10*3/uL (2.0-8.3); Neutrophils Percent Auto 89.1 % (45-73); Platelet Count 284 X10*3/uL (160-400); Red Blood Count 3.68 X10*6/uL (4.60-5.80); Red Cell Distribution Width 13.5 % (11.0-16.0); SCAN SMEAR FLAG 1
[2021-11-13 14:45] LABS: White Blood Count 39.1 X10*3/uL (4.8-10.8)
[2021-11-13 15:14] LABS: Alanine Aminotransferase 3910 U/L (0-40); Albumin Level 3.7 g/dL (3.5-5.0); Alkaline Phosphatase 230 U/L (39-117); Anion Gap 28 (12-20); Bilirubin Total 2.6 mg/dL (0.0-1.0); Blood Urea Nitrogen 18 mg/dL (9-16); Calcium 9.6 mg/dL (8.4-10.2); Carbon Dioxide 18 mmol/L (22-29); Chloride 98 mmol/L (96-108); Creatinine Clr Calc Pharmacy 20.3; Estimated Glomerular Filt Rate 14; Glucose Random 73 mg/dL (60-115); Magnesium 2.2 mg/dL (1.6-2.6); Phosphorus 4.5 mg/dL (2.7-4.5); Potassium 4.8 mmol/L (3.3-5.1); Sodium 139 mmol/L (135-145)
[2021-11-13 15:17] LABS: SLIDE REVIEW VERIFIED
[2021-11-13 15:29] LABS: Aspartate Amino Transferase 7003 U/L (5-37)
[2021-11-13 16:34] LABS: Reflex Lactate? 2 Y
[2021-11-13] MEDS: Piperacillin Sodium/Tazobactam 2.25 GM in 0.9 % Sodium Chloride 50 ML IV (16:41)
[2021-11-13 17:43] LABS: PTT Heparin Drip 66.7 SEC (53-77.9)
[2021-11-13 17:54] LABS: ~Lactic Acid-LAB USE ONLY 5.1 mmol/L (0.5-2.0)
[2021-11-13 18:44] LABS: Vancomycin Random 10.2 mcg/mL (15-20)
--- NOTE | 2021-11-13 19:10 | HE.PHANOTE ---
VANCOMYCIN ADDENDUM POST DIALYSIS LEVEL IS 10.2, PUT IN FOR A 500 MG POST DIALYSIS VANCO DOSE. THE DIALYSIS SCHEDULE IS UNKNOWN SO ORDER IS STILL PENDING AND WE WILL NEED TO FOLLOW THE PATIENT DAILY
[2021-11-13] MEDS: vancomycin HCL 500 MG in 0.9 % Sodium Chloride 100 ML 110 MG IV (19:28)
[2021-11-13] MEDS: Amiodarone HCL 200 MG TABLET PO (20:55)
[2021-11-13] MEDS: Melatonin 3 MG TABLET 9 MG PO (23:32)
[2021-11-13 23:50] LABS: PTT Heparin Drip 62.7 SEC (53-77.9)
[2021-11-14] VITALS (15 sets, daily range): BP systolic 95–143; BP diastolic 24–65; PULSE 59–88; RESP 11–22; TEMP 36.1–36.9; O2SAT 94–100; BMI 30.9
[2021-11-14] MEDS: Heparin Sodium,Porcine/1/2NS 25,000 UNIT/250 ML IV.SOLN 15.52 UNIT IVCONT ×2 (01:48→12:18)
[2021-11-14] MEDS: Piperacillin Sodium/Tazobactam 2.25 GM in 0.9 % Sodium Chloride 50 ML IV ×3 (01:49→17:24)
[2021-11-14 05:32] LABS: MANUAL DIFF FLAG NO
[2021-11-14 05:36] LABS: VBG Base Excess 0.5 mmol/L; VBG HCO3 24 mmol/L (22-26); VBG pCO2 36 mmHg; VBG pH 7.42 (7.32-7.43); VBG pO2 38 mmHg
[2021-11-14 05:37] LABS: Basophils Absolute Auto 0.1 X10*3/uL (0.0-0.2); Basophils Percent Auto 0.4 % (0-2); Eosinophils Percent Auto 0.2 % (0-4); Hematocrit 27.8 % (42.0-52.0); Hemoglobin 8.8 g/dl (14.0-18.0); Imm Gran Abs Auto 0.35 X10*3/uL (0.00-0.03); Imm Gran Pct Auto 1.7 % (0.0-0.4); Lymphocytes Absolute Auto 1.7 X10*3/uL (1.2-4.9); Mean Corpuscular HGB Conc 31.7 g/dl (31.0-36.0); Mean Corpuscular Hemoglobin 28.8 pg (27.0-33.0); Mean Corpuscular Volume 90.8 fL (80.0-98.0); Mean Platelet Volume 10.8 fL (9.4-12.4); Monocytes Absolute Auto 0.6 X10*3/uL (0.1-1.2); Monocytes Percent Auto 3.1 % (2-11); NRBC Pct Auto 0.5 /100WBC (0.0-0.2); Neutrophils Percent Auto 86.6 % (45-73); Platelet Count 162 X10*3/uL (160-400); Red Blood Count 3.06 X10*6/uL (4.60-5.80); Red Cell Distribution Width 13.6 % (11.0-16.0); White Blood Count 20.8 X10*3/uL (4.8-10.8)
[2021-11-14 05:42] LABS: INTERNATIONAL NORM RATIO 3.6 (0.9-1.1)
[2021-11-14 05:50] LABS: Lactic Acid 2.4 mmol/L (0.5-2.0)
[2021-11-14 06:17] LABS: Venous Blood Gas Refer to POC result
[2021-11-14 06:32] LABS: Alanine Aminotransferase 3019 U/L (0-40); Albumin Level 3.1 g/dL (3.5-5.0); Alkaline Phosphatase 200 U/L (39-117); Anion Gap 23 (12-20); Bilirubin Total 2.1 mg/dL (0.0-1.0); Blood Urea Nitrogen 38 mg/dL (9-16); Calcium 8.4 mg/dL (8.4-10.2); Carbon Dioxide 22 mmol/L (22-29); Chloride 97 mmol/L (96-108); Creatinine Clr Calc Pharmacy 15.1; Estimated Glomerular Filt Rate 10; Glucose Random 117 mg/dL (60-115); Magnesium 2.1 mg/dL (1.6-2.6); Phosphorus 5.7 mg/dL (2.7-4.5); Potassium 5.1 mmol/L (3.3-5.1); Sodium 137 mmol/L (135-145); Total Protein 6.7 g/dL (6.5-8.0)
[2021-11-14 07:28] LABS: Reflex Lactate? Lactic Acid Added
[2021-11-14] MEDS: Amiodarone HCL 200 MG TABLET PO ×2 (08:40→22:06)
--- NOTE | 2021-11-14 10:05 | P.PNCC_ITS ---
Subjective Subjective Date of Service: 11/14/21 Interval History: 56-year-old gentleman with underlying history of CAD status post CABG and mitral valve annuloplasty, diabetes mellitus, ESRD on hemodialysis, prior episode of ventricular tachycardia prior to his dialysis session admitted on 11/13/2021 with malaise secondary to ventricular tachycardia with pulse requiring cardioversion and emergency room. Patient was started on heparin and amiodarone drip by Cardiology recommendation and admitted to intensive care unit for close monitoring. He has been transition to p.o. amiodarone. His hospital course was significant for initial elevation of transaminases, likely secondary to shock liver, now improving. No events overnight. Critical Care Time (minutes): 0 Physical Exam Vital Signs: Vital Signs: Last Vital Signs Temp 97.9 F 11/14/21 09:54 Pulse 59 11/14/21 09:54 Resp 19 11/14/21 09:54 BP 95/34 L 11/14/21 09:54 Pulse Ox 95 11/14/21 09:54 O2 Del Method 11/14/21 09:54 O2 Flow Rate 4 11/13/21 09:00 Oxygen Flow Rate 4 11/13/21 02:30 BMI result Body Mass Index 30.9 Const: General: no acute distress, alert and awake Eyes: Sclerae: sclerae normal EOM: EOMs intact bilaterally Neck: Neck: Yes no lymphadenopathy, Yes trachea midline and Yes supple Resp: Effort & Inspection: normal respiratory effort and no respiratory distress Auscultation: clear to auscultation bilaterally Cardio: Rate: regular rate Rhythm: regular rhythm Heart sounds: no gallops, no murmurs and no rubs GI: Palpation (GI): Soft to palpation and Other GI palpation findings present ( Nontender) Auscultation: normal bowel sounds Extrem: General: Yes no pedal edema, No clubbing and No cyanosis Objective Data Labs CBC & Chem 7: 11/14/21 05:23 11/14/21 05:23 Labs: Laboratory Results - last 24 hr 11/13/21 11/13/21 11/13/21 10:02 14:29 14:29 WBC 39.1 H* RBC 3.68 L Hgb 11.0 L Hct 33.4 L MCV 90.8 MCH 29.9 MCHC 32.9 RDW 13.5 Plt Count 284 MPV 10.7 Immature Gran % (Auto) 4.3 H Neut % (Auto) 89.1 H Lymph % (Auto) 2.6 L [place] % (Auto) 3.5 Eos % (Auto) 0.0 Baso % (Auto) 0.5 Lymph # (Auto) 1.0 L [place] # (Auto) 1.4 H Eos # (Auto) 0.0 Baso # (Auto) 0.2 Abs Immat Gran (auto) 1.70 H Absolute Neuts (auto) 34.9 H Absolute Nucleated RBC 0.130 H Nucleated RBC % (auto) 0.3 H Smear Tech's Comments VERIFIED PT INR aPTT Heparin Protocol 47.0 L VBG pH VBG pCO2 VBG pO2 VBG HCO3 VBG O2 Saturation VBG Base Excess Sodium 139 Potassium 4.8 Chloride 98 Carbon Dioxide 18 L Anion Gap 28 H BUN 18 H Creatinine 4.47 H* Estim Creat Clear Calc 20.3 Estimated GFR 14 Random Glucose 73 Lactic Acid Lactic Acid F/U @ 2Hr Lactic Acid F/U @ 4Hr Calcium 9.6 D Phosphorus 4.5 Magnesium 2.2 Total Bilirubin 2.6 H AST 7003 H ALT 3910 H Alkaline Phosphatase 230 H D Total Protein 8.0 Albumin 3.7 Random Vancomycin 11/13/21 11/13/21 11/13/21 14:29 17:23 17:23 WBC RBC Hgb Hct MCV MCH MCHC RDW Plt Count MPV Immature Gran % (Auto) Neut % (Auto) Lymph % (Auto) [place] % (Auto) Eos % (Auto) Baso % (Auto) Lymph # (Auto) [place] # (Auto) Eos # (Auto) Baso # (Auto) Abs Immat Gran (auto) Absolute Neuts (auto) Absolute Nucleated RBC Nucleated RBC % (auto) Smear Tech's Comments PT INR aPTT Heparin Protocol 66.7 D VBG pH VBG pCO2 VBG pO2 VBG HCO3 VBG O2 Saturation VBG Base Excess Sodium Potassium Chloride Carbon Dioxide Anion Gap BUN Creatinine Estim Creat Clear Calc Estimated GFR Random Glucose Lactic Acid Lactic Acid F/U @ 2Hr 5.0 H* Lactic Acid F/U @ 4Hr 5.1 H* Calcium Phosphorus Magnesium Total Bilirubin AST ALT Alkaline Phosphatase Total Protein Albumin Random Vancomycin 11/13/21 11/13/21 11/14/21 18:04 23:29 05:23 WBC RBC Hgb Hct MCV MCH MCHC RDW Plt Count MPV Immature Gran % (Auto) Neut % (Auto) Lymph % (Auto) [place] % (Auto) Eos % (Auto) Baso % (Auto) Lymph # (Auto) [place] # (Auto) Eos # (Auto) Baso # (Auto) Abs Immat Gran (auto) Absolute Neuts (auto) Absolute Nucleated RBC Nucleated RBC % (auto) Smear Tech's Comments PT 44.0 H INR 3.6 H aPTT Heparin Protocol 62.7 68.0 VBG pH VBG pCO2 VBG pO2 VBG HCO3 VBG O2 Saturation VBG Base Excess Sodium Potassium Chloride Carbon Dioxide Anion Gap BUN Creatinine Estim Creat Clear Calc Estimated GFR Random Glucose Lactic Acid Lactic Acid F/U @ 2Hr Lactic Acid F/U @ 4Hr Calcium Phosphorus Magnesium Total Bilirubin AST ALT Alkaline Phosphatase Total Protein Albumin Random Vancomycin 10.2 L 11/14/21 11/14/21 11/14/21 05:23 05:23 05:23 WBC 20.8 H RBC 3.06 L Hgb 8.8 L Hct 27.8 L MCV 90.8 MCH 28.8 MCHC 31.7 RDW 13.6 Plt Count 162 D MPV 10.8 Immature Gran % (Auto) 1.7 H Neut % (Auto) 86.6 H Lymph % (Auto) 8.0 L [place] % (Auto) 3.1 Eos % (Auto) 0.2 Baso % (Auto) 0.4 Lymph # (Auto) 1.7 [place] # (Auto) 0.6 Eos # (Auto) 0.0 Baso # (Auto) 0.1 Abs Immat Gran (auto) 0.35 H Absolute Neuts (auto) 18.0 H Absolute Nucleated RBC 0.110 H Nucleated RBC % (auto) 0.5 H Smear Tech's Comments PT INR aPTT Heparin Protocol VBG pH VBG pCO2 VBG pO2 VBG HCO3 VBG O2 Saturation VBG Base Excess Sodium 137 Potassium 5.1 Chloride 97 Carbon Dioxide 22 Anion Gap 23 H BUN 38 H D Creatinine 5.85 H* Estim Creat Clear Calc 15.1 Estimated GFR 10 Random Glucose 117 H D Lactic Acid 2.4 H* Lactic Acid F/U @ 2Hr Lactic Acid F/U @ 4Hr Calcium 8.4 D Phosphorus 5.7 H Magnesium 2.1 Total Bilirubin 2.1 H AST > 3791 H ALT 3019 H Alkaline Phosphatase 200 H Total Protein 6.7 Albumin 3.1 L Random Vancomycin 11/14/21 11/14/21 05:31 07:38 WBC RBC Hgb Hct MCV MCH MCHC RDW Plt Count MPV Immature Gran % (Auto) Neut % (Auto) Lymph % (Auto) [place] % (Auto) Eos % (Auto) Baso % (Auto) Lymph # (Auto) [place] # (Auto) Eos # (Auto) Baso # (Auto) Abs Immat Gran (auto) Absolute Neuts (auto) Absolute Nucleated RBC Nucleated RBC % (auto) Smear Tech's Comments PT INR aPTT Heparin Protocol VBG pH 7.42 VBG pCO2 36 VBG pO2 38 VBG HCO3 24 VBG O2 Saturation 55.0 VBG Base Excess 0.5 Sodium Potassium Chloride Carbon Dioxide Anion Gap BUN Creatinine Estim Creat Clear Calc Estimated GFR Random Glucose Lactic Acid Lactic Acid F/U @ 2Hr 2.0 Lactic Acid F/U @ 4Hr Calcium Phosphorus Magnesium Total Bilirubin AST ALT Alkaline Phosphatase Total Protein Albumin Random Vancomycin Microbiology Microbiology Results: Microbiology 11/13/21 03:34 Blood - Venous Blood Culture - Preliminary No growth after 24 hours. 11/13/21 03:34 Blood - Venous Blood Culture - Preliminary No growth after 24 hours. Progress Note: A&P Assessment and plan (1) Transaminitis: Status: Acute (2) End stage renal disease: Status: Acute (3) Ventricular tachycardia: Status: Acute (4) CAD (coronary artery disease): Status: Acute (5) Cardiomyopathy: Status: Acute Plan Assessment: 56-year-old gentleman admitted with an episode of ventricular tachycardia with pulse requiring cardioversion with hospital course complicated by transaminitis Plan: Neuro: No acute issues. Cardiac: Ventricular tachycardia with prior history of tracheal tachycardia, resolved after cardioversion, amiodarone drip converted to p.o. Underlying history of CABG and cardiomyopathy. Cardiology evaluation requested. Continues on heparin drip per initial cardiology recommendation. 2D echocardiogram is pending. Pulmonary: No acute issues. Renal: ESRD on hemodialysis. Nephrology service care appreciated. Endo: No acute issues. Underlying diabetes mellitus. GI: No acute issues. ID: No acute issues Heme/Onc: No acute issues. Psych: No acute issues. Miscellaneous: No acute issues. Prophylaxis: Heparin drip Diet: Low-potassium Quality Stroke Does the patient have a stroke diagnosis?: No VTE Prior VTE?: No VTE Risk Level:: Medical - moderate - high VTE Device Contraindication: Treatment Not Indicated VTE Drug Contraindication: N/A - Med Ordered
--- NOTE | 2021-11-14 11:19 | PM.PNNEP ---
Subjective Subjective Date of Service: 11/14/21 Interval history: 56-year-old gentleman with underlying history of CAD status post CABG and mitral valve annuloplasty, diabetes mellitus, ESRD on hemodialysis, prior episode of ventricular tachycardia prior to his dialysis session admitted on 11/13/2021 with malaise secondary to ventricular tachycardia with pulse requiring cardioversion and emergency room. Patient was started on heparin and amiodarone drip by Cardiology recommendation and admitted to intensive care unit for close monitoring. He has been transition to p.o. amiodarone. His hospital course was significant for initial elevation of transaminases, likely secondary to shock liver, now improving. No events overnight. Physical Exam Vital Signs: Vital Signs: Last Vital Signs Temp 97.9 F 11/14/21 09:54 Pulse 59 11/14/21 09:54 Resp 19 11/14/21 09:54 BP 95/34 L 11/14/21 09:54 Pulse Ox 95 11/14/21 09:54 O2 Del Method 11/14/21 09:54 O2 Flow Rate 4 11/13/21 09:00 Oxygen Flow Rate 4 11/13/21 02:30 BMI result Body Mass Index 30.9 Const: Other: Appearance: Lethargic, only moaning to pain, ill looking Eyes: Pupils equal, round and reactive to light. ENT: Pharynx normal. Neck: Normal inspection. Neck supple. No lymph nodes noted. No crepitus CVS: Tachycardic Respiratory: No respiratory distress. Breath sounds normal. No Wheezing. No rales Abdomen: Soft and nontender. No rigidity. No distention. Skin: Pale, diffusely diaphoretic Extremities: No lower extremity edema. No Lacerations. No Rash Neuro lethargic Psych: Lethargic General: no acute distress, alert and awake Eyes: Sclerae: sclerae normal EOM: EOMs intact bilaterally Neck: Neck: Yes no lymphadenopathy, Yes trachea midline and Yes supple Resp: Effort & Inspection: normal respiratory effort and no respiratory distress Auscultation: clear to auscultation bilaterally Cardio: Rate: regular rate Rhythm: regular rhythm Heart sounds: no gallops, no murmurs and no rubs GI: Palpation (GI): Soft to palpation and Other GI palpation findings present ( Nontender) Auscultation: normal bowel sounds Extrem: General: Yes no pedal edema, No clubbing and No cyanosis Objective Data Labs CBC & Chem 7: 11/14/21 05:23 11/14/21 05:23 Labs: Laboratory Results - last 24 hr 11/13/21 11/13/21 11/13/21 14:29 14:29 14:29 WBC 39.1 H* RBC 3.68 L Hgb 11.0 L Hct 33.4 L MCV 90.8 MCH 29.9 MCHC 32.9 RDW 13.5 Plt Count 284 MPV 10.7 Immature Gran % (Auto) 4.3 H Neut % (Auto) 89.1 H Lymph % (Auto) 2.6 L [place] % (Auto) 3.5 Eos % (Auto) 0.0 Baso % (Auto) 0.5 Lymph # (Auto) 1.0 L [place] # (Auto) 1.4 H Eos # (Auto) 0.0 Baso # (Auto) 0.2 Abs Immat Gran (auto) 1.70 H Absolute Neuts (auto) 34.9 H Absolute Nucleated RBC 0.130 H Nucleated RBC % (auto) 0.3 H Smear Tech's Comments VERIFIED PT INR aPTT Heparin Protocol VBG pH VBG pCO2 VBG pO2 VBG HCO3 VBG O2 Saturation VBG Base Excess Sodium 139 Potassium 4.8 Chloride 98 Carbon Dioxide 18 L Anion Gap 28 H BUN 18 H Creatinine 4.47 H* Estim Creat Clear Calc 20.3 Estimated GFR 14 Random Glucose 73 Lactic Acid Lactic Acid F/U @ 2Hr 5.0 H* Lactic Acid F/U @ 4Hr Calcium 9.6 D Phosphorus 4.5 Magnesium 2.2 Total Bilirubin 2.6 H AST 7003 H ALT 3910 H Alkaline Phosphatase 230 H D Total Protein 8.0 Albumin 3.7 Random Vancomycin 11/13/21 11/13/21 11/13/21 17:23 17:23 18:04 WBC RBC Hgb Hct MCV MCH MCHC RDW Plt Count MPV Immature Gran % (Auto) Neut % (Auto) Lymph % (Auto) [place] % (Auto) Eos % (Auto) Baso % (Auto) Lymph # (Auto) [place] # (Auto) Eos # (Auto) Baso # (Auto) Abs Immat Gran (auto) Absolute Neuts (auto) Absolute Nucleated RBC Nucleated RBC % (auto) Smear Tech's Comments PT INR aPTT Heparin Protocol 66.7 D VBG pH VBG pCO2 VBG pO2 VBG HCO3 VBG O2 Saturation VBG Base Excess Sodium Potassium Chloride Carbon Dioxide Anion Gap BUN Creatinine Estim Creat Clear Calc Estimated GFR Random Glucose Lactic Acid Lactic Acid F/U @ 2Hr Lactic Acid F/U @ 4Hr 5.1 H* Calcium Phosphorus Magnesium Total Bilirubin AST ALT Alkaline Phosphatase Total Protein Albumin Random Vancomycin 10.2 L 11/13/21 11/14/21 11/14/21 23:29 05:23 05:23 WBC 20.8 H RBC 3.06 L Hgb 8.8 L Hct 27.8 L MCV 90.8 MCH 28.8 MCHC 31.7 RDW 13.6 Plt Count 162 D MPV 10.8 Immature Gran % (Auto) 1.7 H Neut % (Auto) 86.6 H Lymph % (Auto) 8.0 L [place] % (Auto) 3.1 Eos % (Auto) 0.2 Baso % (Auto) 0.4 Lymph # (Auto) 1.7 [place] # (Auto) 0.6 Eos # (Auto) 0.0 Baso # (Auto) 0.1 Abs Immat Gran (auto) 0.35 H Absolute Neuts (auto) 18.0 H Absolute Nucleated RBC 0.110 H Nucleated RBC % (auto) 0.5 H Smear Tech's Comments PT 44.0 H INR 3.6 H aPTT Heparin Protocol 62.7 68.0 VBG pH VBG pCO2 VBG pO2 VBG HCO3 VBG O2 Saturation VBG Base Excess Sodium Potassium Chloride Carbon Dioxide Anion Gap BUN Creatinine Estim Creat Clear Calc Estimated GFR Random Glucose Lactic Acid Lactic Acid F/U @ 2Hr Lactic Acid F/U @ 4Hr Calcium Phosphorus Magnesium Total Bilirubin AST ALT Alkaline Phosphatase Total Protein Albumin Random Vancomycin 11/14/21 11/14/21 11/14/21 05:23 05:23 05:31 WBC RBC Hgb Hct MCV MCH MCHC RDW Plt Count MPV Immature Gran % (Auto) Neut % (Auto) Lymph % (Auto) [place] % (Auto) Eos % (Auto) Baso % (Auto) Lymph # (Auto) [place] # (Auto) Eos # (Auto) Baso # (Auto) Abs Immat Gran (auto) Absolute Neuts (auto) Absolute Nucleated RBC Nucleated RBC % (auto) Smear Tech's Comments PT INR aPTT Heparin Protocol VBG pH 7.42 VBG pCO2 36 VBG pO2 38 VBG HCO3 24 VBG O2 Saturation 55.0 VBG Base Excess 0.5 Sodium 137 Potassium 5.1 Chloride 97 Carbon Dioxide 22 Anion Gap 23 H BUN 38 H D Creatinine 5.85 H* Estim Creat Clear Calc 15.1 Estimated GFR 10 Random Glucose 117 H D Lactic Acid 2.4 H* Lactic Acid F/U @ 2Hr Lactic Acid F/U @ 4Hr Calcium 8.4 D Phosphorus 5.7 H Magnesium 2.1 Total Bilirubin 2.1 H AST > 3791 H ALT 3019 H Alkaline Phosphatase 200 H Total Protein 6.7 Albumin 3.1 L Random Vancomycin 11/14/21 07:38 WBC RBC Hgb Hct MCV MCH MCHC RDW Plt Count MPV Immature Gran % (Auto) Neut % (Auto) Lymph % (Auto) [place] % (Auto) Eos % (Auto) Baso % (Auto) Lymph # (Auto) [place] # (Auto) Eos # (Auto) Baso # (Auto) Abs Immat Gran (auto) Absolute Neuts (auto) Absolute Nucleated RBC Nucleated RBC % (auto) Smear Tech's Comments PT INR aPTT Heparin Protocol VBG pH VBG pCO2 VBG pO2 VBG HCO3 VBG O2 Saturation VBG Base Excess Sodium Potassium Chloride Carbon Dioxide Anion Gap BUN Creatinine Estim Creat Clear Calc Estimated GFR Random Glucose Lactic Acid Lactic Acid F/U @ 2Hr 2.0 Lactic Acid F/U @ 4Hr Calcium Phosphorus Magnesium Total Bilirubin AST ALT Alkaline Phosphatase Total Protein Albumin Random Vancomycin Microbiology Microbiology Results: Microbiology 11/13/21 03:34 Blood - Venous Blood Culture - Preliminary No growth after 24 hours. 11/13/21 03:34 Blood - Venous Blood Culture - Preliminary No growth after 24 hours. Procedures Date of Service Date of Service: 11/14/21 Assessment & Plan Assessment and plan (1) Transaminitis: Status: Acute (2) End stage renal disease: Status: Acute Assessment and Plan: MWF DIALYSIS TREATMENT YESTERDAY NEXT RX TUESDAY (3) Ventricular tachycardia: Status: Acute (4) CAD (coronary artery disease): Status: Acute (5) Cardiomyopathy: Status: Acute Plan Assessment: 56-year-old gentleman admitted with an episode of ventricular tachycardia with pulse requiring cardioversion with hospital course complicated by transaminitis Plan: Neuro: No acute issues. Cardiac: Ventricular tachycardia with prior history of tracheal tachycardia, resolved after cardioversion, amiodarone drip converted to p.o. Underlying history of CABG and cardiomyopathy. Cardiology evaluation requested. Continues on heparin drip per initial cardiology recommendation. 2D echocardiogram is pending. Pulmonary: No acute issues. Renal: ESRD on hemodialysis. Nephrology service care appreciated. Endo: No acute issues. Underlying diabetes mellitus. GI: No acute issues. ID: No acute issues Heme/Onc: No acute issues. Psych: No acute issues. Miscellaneous: No acute issues. Prophylaxis: Heparin drip Diet: Low-potassium Time Spent With Patient Time: Total time spent is greater than 50% in coordination of care (as documented) at patient's floor/unit and/or counseling patient: Progress Note: Quality Stroke Does the patient have a stroke diagnosis?: No
--- NOTE | 2021-11-14 12:03 | PM.CNCAR ---
History of Present Illness History of Present Illness Date of Service: 11/14/21 Requesting physician: Armando Bobo Chief complaint: VTACH Narrative: 56-year-old gentleman who is end-stage renal disease on hemodialysis and has background history of coronary artery disease status post CABG x3 and mitral valve repair in the past during. He is presenting with sustained ventricular tachycardia. He had cardioversion performed in emergency department and was started on amiodarone. On discussing with him he said it to his medication the wrong time and started feeling dizzy and lightheaded. He denies any palpitations. Denies any chest discomfort shortness of breath. His EKG clearly showed monomorphic VT. He has not had any further episodes since he was started on amiodarone. He is doing well and is denying any other symptoms. He is known to Dr. Mitchell at [facility]. [facility] Past Medical History Medical History (Updated 11/14/21 @ 10:21 by Armando Bobo MD) CAD (coronary artery disease) Cardiomyopathy Chronic kidney disease End stage renal disease Mitral valve regurgitation Nonhealing wound of heel Type 2 diabetes mellitus Surgical History Surgical History (Updated 11/13/21 @ 03:47 by Zana Anand NP) Hx of CABG Social History Social History Currently Displaying Signs/Symptoms of Drug Intoxication Withdrawal: No Advance Directives: No Current occupational status: disabled Meds Allergies Allergy/AdvReac Type Severity Reaction Status Date / Time No Known Allergies Allergy Verified 11/13/21 01:17 Active Medications: Current Medications Amiodarone HCl (Amiodarone Hcl 200 Mg Tablet) 200 mg PO BID [facility] Last Admin: 11/14/21 08:40 Dose: 200 mg Heparin Sodium (Porcine) (Heparin Sodium,Porcine 5,000 Unit/Ml Vial) 3,800 unit IVPUSH PROTOCOL BOLUS PRN; Protocol PRN Reason: 40 unit/kg - Heparin Protocol Last Admin: 11/13/21 11:20 Dose: 3,800 unit Heparin Sodium (Porcine) (Heparin Sodium,Porcine 5,000 Unit/Ml Vial) 7,600 unit IVPUSH PROTOCOL BOLUS PRN; Protocol PRN Reason: 80 unit/kg - Heparin Protocol Vancomycin HCl 1,000 mg/ (Sodium Chloride) 270 mls @ 270 mls/hr IV Q48H [facility] Heparin Sodium/Sodium Chloride (Heparin Sodium,Porcine/1/2ns) 25,000 unit in 250 mls @ 0 mls/hr IVCONT .Q0M [facility]; Protocol Last Admin: 11/14/21 01:48 Dose: 16 units/kg/hr, 15.52 mls/hr Piperacillin Sod/Tazobactam (Sod 2.25 gm/ Sodium Chloride) 50 mls @ 100 mls/hr IV Q8H [facility] Last Infusion: 11/14/21 09:39 Dose: Infused Melatonin (Melatonin 3 Mg Tablet) 9 mg PO BEDTIME PRN PRN Reason: Insomnia Last Admin: 11/13/21 23:32 Dose: 9 mg Pharmacy Consult (Consult Rx Vancomycin Dosing) 1 each MISCELLANE DAILY PRN PRN Reason: Consult order Home Medications Medication Instructions Recorded Confirmed Last Taken Type acetaminophen 500 mg tablet 500 - 1,000 mg PO Q6H PRN Pain 11/13/21 11/13/21 Unknown History apixaban 5 mg tablet (Eliquis) 1 tab PO DAILY 11/13/21 11/13/21 11/12/21 History aspirin 81 mg tablet,delayed 81 mg PO DAILY 11/13/21 11/13/21 11/12/21 History release atorvastatin 40 mg tablet 1 tab PO DAILY 11/13/21 11/13/21 11/12/21 History cholecalciferol (vitamin D3) 25 25 mcg PO DAILY 11/13/21 11/13/21 11/12/21 History mcg (1,000 unit) tablet (Vitamin D3) clotrimazole 2 % vaginal cream 1 appl topical DAILY 11/13/21 11/13/21 Unknown History insulin glargine 100 unit/mL (3 40 unit subcut BEDTIME 11/13/21 11/13/21 11/12/21 History mL) subcutaneous pen (Lantus Solostar U-100 Insulin) lidocaine-prilocaine 2.5 %-2.5 % 1 appl topical DAILY PRN Analgesia 11/13/21 11/13/21 Unknown History topical cream metoprolol succinate 50 mg 1 tab PO DAILY 11/13/21 11/13/21 11/12/21 History tablet,extended release 24 hr pantoprazole 40 mg tablet,delayed 1 tab PO DAILY@0630 11/13/21 11/13/21 11/12/21 History release Physical Exam Vital Signs: Vital Signs: Last Vital Signs Temp 97.0 F 11/14/21 11:57 Pulse 61 11/14/21 11:57 Resp 15 11/14/21 11:57 BP 135/47 L 11/14/21 11:57 Pulse Ox 97 11/14/21 11:57 O2 Del Method 11/14/21 11:57 O2 Flow Rate 4 11/13/21 09:00 Oxygen Flow Rate 4 11/13/21 02:30 BMI result Body Mass Index 30.9 GENERAL APPEARANCE: in no acute distress, pleasant. NECK: no carotid bruit, no jugular venous distention. SKIN: Midline sternotomy scar. HEART: no murmurs, regular rate and rhythm. LUNGS: clear to auscultation bilaterally. ABDOMEN: soft, nontender. EXTREMITIES: no edema. Left arm dialysis fistula. NEUROLOGIC: No gross deficits, AAO X 3 Objective Labs and Meds Result diagrams: 11/14/21 05:23 11/14/21 05:23 Lab results: Laboratory Results - last 24 hr 11/13/21 11/13/21 11/13/21 14:29 14:29 14:29 WBC 39.1 H* RBC 3.68 L Hgb 11.0 L Hct 33.4 L MCV 90.8 MCH 29.9 MCHC 32.9 RDW 13.5 Plt Count 284 MPV 10.7 Immature Gran % (Auto) 4.3 H Neut % (Auto) 89.1 H Lymph % (Auto) 2.6 L [place] % (Auto) 3.5 Eos % (Auto) 0.0 Baso % (Auto) 0.5 Lymph # (Auto) 1.0 L [place] # (Auto) 1.4 H Eos # (Auto) 0.0 Baso # (Auto) 0.2 Abs Immat Gran (auto) 1.70 H Absolute Neuts (auto) 34.9 H Absolute Nucleated RBC 0.130 H Nucleated RBC % (auto) 0.3 H Smear Tech's Comments VERIFIED PT INR aPTT Heparin Protocol VBG pH VBG pCO2 VBG pO2 VBG HCO3 VBG O2 Saturation VBG Base Excess Sodium 139 Potassium 4.8 Chloride 98 Carbon Dioxide 18 L Anion Gap 28 H BUN 18 H Creatinine 4.47 H* Estim Creat Clear Calc 20.3 Estimated GFR 14 Random Glucose 73 Lactic Acid Lactic Acid F/U @ 2Hr 5.0 H* Lactic Acid F/U @ 4Hr Calcium 9.6 D Phosphorus 4.5 Magnesium 2.2 Total Bilirubin 2.6 H AST 7003 H ALT 3910 H Alkaline Phosphatase 230 H D Total Protein 8.0 Albumin 3.7 Random Vancomycin 11/13/21 11/13/21 11/13/21 17:23 17:23 18:04 WBC RBC Hgb Hct MCV MCH MCHC RDW Plt Count MPV Immature Gran % (Auto) Neut % (Auto) Lymph % (Auto) [place] % (Auto) Eos % (Auto) Baso % (Auto) Lymph # (Auto) [place] # (Auto) Eos # (Auto) Baso # (Auto) Abs Immat Gran (auto) Absolute Neuts (auto) Absolute Nucleated RBC Nucleated RBC % (auto) Smear Tech's Comments PT INR aPTT Heparin Protocol 66.7 D VBG pH VBG pCO2 VBG pO2 VBG HCO3 VBG O2 Saturation VBG Base Excess Sodium Potassium Chloride Carbon Dioxide Anion Gap BUN Creatinine Estim Creat Clear Calc Estimated GFR Random Glucose Lactic Acid Lactic Acid F/U @ 2Hr Lactic Acid F/U @ 4Hr 5.1 H* Calcium Phosphorus Magnesium Total Bilirubin AST ALT Alkaline Phosphatase Total Protein Albumin Random Vancomycin 10.2 L 11/13/21 11/14/21 11/14/21 23:29 05:23 05:23 WBC 20.8 H RBC 3.06 L Hgb 8.8 L Hct 27.8 L MCV 90.8 MCH 28.8 MCHC 31.7 RDW 13.6 Plt Count 162 D MPV 10.8 Immature Gran % (Auto) 1.7 H Neut % (Auto) 86.6 H Lymph % (Auto) 8.0 L [place] % (Auto) 3.1 Eos % (Auto) 0.2 Baso % (Auto) 0.4 Lymph # (Auto) 1.7 [place] # (Auto) 0.6 Eos # (Auto) 0.0 Baso # (Auto) 0.1 Abs Immat Gran (auto) 0.35 H Absolute Neuts (auto) 18.0 H Absolute Nucleated RBC 0.110 H Nucleated RBC % (auto) 0.5 H Smear Tech's Comments PT 44.0 H INR 3.6 H aPTT Heparin Protocol 62.7 68.0 VBG pH VBG pCO2 VBG pO2 VBG HCO3 VBG O2 Saturation VBG Base Excess Sodium Potassium Chloride Carbon Dioxide Anion Gap BUN Creatinine Estim Creat Clear Calc Estimated GFR Random Glucose Lactic Acid Lactic Acid F/U @ 2Hr Lactic Acid F/U @ 4Hr Calcium Phosphorus Magnesium Total Bilirubin AST ALT Alkaline Phosphatase Total Protein Albumin Random Vancomycin 11/14/21 11/14/21 11/14/21 05:23 05:23 05:31 WBC RBC Hgb Hct MCV MCH MCHC RDW Plt Count MPV Immature Gran % (Auto) Neut % (Auto) Lymph % (Auto) [place] % (Auto) Eos % (Auto) Baso % (Auto) Lymph # (Auto) [place] # (Auto) Eos # (Auto) Baso # (Auto) Abs Immat Gran (auto) Absolute Neuts (auto) Absolute Nucleated RBC Nucleated RBC % (auto) Smear Tech's Comments PT INR aPTT Heparin Protocol VBG pH 7.42 VBG pCO2 36 VBG pO2 38 VBG HCO3 24 VBG O2 Saturation 55.0 VBG Base Excess 0.5 Sodium 137 Potassium 5.1 Chloride 97 Carbon Dioxide 22 Anion Gap 23 H BUN 38 H D Creatinine 5.85 H* Estim Creat Clear Calc 15.1 Estimated GFR 10 Random Glucose 117 H D Lactic Acid 2.4 H* Lactic Acid F/U @ 2Hr Lactic Acid F/U @ 4Hr Calcium 8.4 D Phosphorus 5.7 H Magnesium 2.1 Total Bilirubin 2.1 H AST > 3791 H ALT 3019 H Alkaline Phosphatase 200 H Total Protein 6.7 Albumin 3.1 L Random Vancomycin 11/14/21 07:38 WBC RBC Hgb Hct MCV MCH MCHC RDW Plt Count MPV Immature Gran % (Auto) Neut % (Auto) Lymph % (Auto) [place] % (Auto) Eos % (Auto) Baso % (Auto) Lymph # (Auto) [place] # (Auto) Eos # (Auto) Baso # (Auto) Abs Immat Gran (auto) Absolute Neuts (auto) Absolute Nucleated RBC Nucleated RBC % (auto) Smear Tech's Comments PT INR aPTT Heparin Protocol VBG pH VBG pCO2 VBG pO2 VBG HCO3 VBG O2 Saturation VBG Base Excess Sodium Potassium Chloride Carbon Dioxide Anion Gap BUN Creatinine Estim Creat Clear Calc Estimated GFR Random Glucose Lactic Acid Lactic Acid F/U @ 2Hr 2.0 Lactic Acid F/U @ 4Hr Calcium Phosphorus Magnesium Total Bilirubin AST ALT Alkaline Phosphatase Total Protein Albumin Random Vancomycin Assessment and Plan (1) Cardiomyopathy: Status: Acute (2) CAD (coronary artery disease): Status: Acute (3) Ventricular tachycardia: Status: Acute Plan Pleasant 56-year-old gentleman who has end-stage renal disease on hemodialysis and has no history of cardiomyopathy with previous coronary artery disease and bypass surgery and mitral anoplasty ring who is presenting with sustained ventricular tachycardia. He underwent cardioversion in the emergency department because he was significantly hypotensive. Since then he has done well. He has been on amiodarone drip and has been changed to oral amiodarone at this stage. Given no history of coronary disease and sustained ventricular tachycardia, he will need ischemic evaluation. Even if he has coronary disease which has progressed given the fact that he had monomorphic ventricular tachycardia which is usually due to scar VT I think he would need electrophysiology input for a secondary prevention ICD. As he improves I think he should be transferred to [facility]. I have discussed the case with Dr. Mitchell's associate. Continue heparin drip for now daily undergoes cardiac catheterization. He did not have any significant ECG changes or rise in biomarkers. Thank you for allowing me to participate in the care of your patient. Please feel free to contact me if you have any questions. Procedures Date of Service Date of Service: 11/14/21
--- NOTE | 2021-11-14 13:16 | HE.PHANOTE ---
Per nurse dialysis will be every mowefr, changed dose to reflect and added post dialysis level for 11/16@163
--- NOTE | 2021-11-14 15:47 | PM.EVENT ---
Event Note Date of Service: 11/15/21 Event Note: ICU patient acceptance note 55-year-old? male? with past medical history of end-stage renal disease on hemodialysis (M,W,F), CAD status post CABG x3 with mitral valve annuloplasty,? diabetes mellitus, ischemic cardiomyopathy? and chronic right heel wound who? presented to the emergency room? via EMS after being found unresponsive.? According to EMS, the patient's found him unresponsive, pale and diaphoretic around midnight, EKG rhythm showed V-tachycardia.? On arrival to the emergency room,? patient? systolic blood pressure in the low 80s, diaphoretic, pale,? lethargic,? pulse present and rhythm was sustained V-tach heart rate to 200s.? He was emergently cardioverted? with 120 joules. ? After cardioversion the patient was hemodynamically stable and asymptomatic.? Cardiology was consulted by ED physician,? and advised to start patient on amiodarone, heparin? drip and to keep it for defibrillation pads on, subsequently patient admitted to intensive care, since noted to have hypotension required treatment with Levophed, patient noted to have lactic acidosis, acute hypoxic respiratory failure and elevated LFTs , all felt to be related to poor perfusion. ?Laboratory data was significant for WBC 22.1,? hemoglobin 10.6, hematocrit 34,? potassium 5.4, serum bicarb 12, anion gap 37, BUN 26, creatinine 7.39, lactic acid 14.2, total bilirubin 1.4, AST 244, ALT 155, alk-phos 146, BNP 558, albumin 3.4 Imaging:? Chest? x-ray:? no acute findings Since patient hemodynamically stablized he is step-down to medical floor At present patient denies chest pain no palpitation denies right heel pain admits to have right heel wound for several weeks Exam awake alert no distress Lungs clear to auscultation Heart regular Right heel gangrene with surrounding swelling Problem list: Sustained ventricular tachycardia status post cardioversion, currently on amiodarone and iv heparin, patient with prior history of ventricular tachycardia await cardiology input Lactic acidosis resolved likely due to poor perfusion Transaminitis LFTs trending down no abdominal pain, tolerating diet likely due to poor perfusion Right heel wound/gangrene , x-rays of foot showed no evidence of osteomyelitis, no fevers, significant leukocytosis, on IV vanco and Zosyn will need vascular surgery eval End-stage renal disease continue hemodialysis Tuesday and Tuesday DVT prophylaxis with heparin drip Code status full code
[2021-11-14] MEDS: Omeprazole 20 MG CAPSULE.DR PO (17:36)
[2021-11-14 17:37] LABS: Glucose, Whole Blood 149 mg/dL (60-115)
[2021-11-14 21:19] LABS: Glucose, Whole Blood 119 mg/dL (60-115)
[2021-11-14] MEDS: Melatonin 3 MG TABLET 9 MG PO (22:06)
[2021-11-15] MEDS: Heparin Sodium,Porcine/1/2NS 25,000 UNIT/250 ML IV.SOLN 15.52 UNIT IVCONT (00:35)
[2021-11-15] MEDS: Piperacillin Sodium/Tazobactam 2.25 GM in 0.9 % Sodium Chloride 50 ML IV ×2 (01:45→10:10)
[2021-11-15 03:53] VITALS: BP 95/37; PULSE 55; RESP 18; O2SAT 97
[2021-11-15 05:25] LABS: MANUAL DIFF FLAG NO
[2021-11-15 05:31] LABS: Basophils Absolute Auto 0.1 X10*3/uL (0.0-0.2); Basophils Percent Auto 0.4 % (0-2); Eosinophils Absolute Auto 0.1 X10*3/uL (0.0-0.4); Eosinophils Percent Auto 0.5 % (0-4); Hematocrit 25.7 % (42.0-52.0); Hemoglobin 8.4 g/dl (14.0-18.0); Imm Gran Abs Auto 0.92 X10*3/uL (0.00-0.03); Imm Gran Pct Auto 4.5 % (0.0-0.4); Lymphocytes Absolute Auto 1.2 X10*3/uL (1.2-4.9); Lymphocytes Percent Auto 5.8 % (20-40); Mean Corpuscular HGB Conc 32.7 g/dl (31.0-36.0); Mean Corpuscular Hemoglobin 29.1 pg (27.0-33.0); Mean Corpuscular Volume 88.9 fL (80.0-98.0); Mean Platelet Volume 11.1 fL (9.4-12.4); Monocytes Absolute Auto 0.6 X10*3/uL (0.1-1.2); Monocytes Percent Auto 2.8 % (2-11); NRBC Pct Auto 0.6 /100WBC (0.0-0.2); Neutrophils Absolute Auto 17.6 x10*3/uL (2.0-8.3); Platelet Count 151 X10*3/uL (160-400); Red Blood Count 2.89 X10*6/uL (4.60-5.80); Red Cell Distribution Width 13.2 % (11.0-16.0); White Blood Count 20.5 X10*3/uL (4.8-10.8)
[2021-11-15 05:40] LABS: PTT Heparin Drip 80.1 SEC (53-77.9)
[2021-11-15 06:00] VITALS: BMI 31.0
[2021-11-15] MEDS: Omeprazole 20 MG CAPSULE.DR PO (06:07)
[2021-11-15 06:21] LABS: Alanine Aminotransferase 2120 U/L (0-40); Albumin Level 2.8 g/dL (3.5-5.0); Alkaline Phosphatase 185 U/L (39-117); Anion Gap 23 (12-20); Aspartate Amino Transferase 1794 U/L (5-37); Bilirubin Total 1.9 mg/dL (0.0-1.0); Blood Urea Nitrogen 63 mg/dL (9-16); Calcium 8.6 mg/dL (8.4-10.2); Carbon Dioxide 20 mmol/L (22-29); Chloride 95 mmol/L (96-108); Creatinine Clr Calc Pharmacy 11.9; Estimated Glomerular Filt Rate 8; Glucose Random 138 mg/dL (60-115); Potassium 4.3 mmol/L (3.3-5.1); Sodium 134 mmol/L (135-145); Total Protein 6.1 g/dL (6.5-8.0)
[2021-11-15 07:08] LABS: Glucose, Whole Blood 124 mg/dL (60-115)
[2021-11-15 07:14] VITALS: BP 105/35; PULSE 60; RESP 20; TEMP 36.5; O2SAT 60
--- NOTE | 2021-11-15 09:27 | P.DS_ITS ---
DS: Providers Provider Date of Service: 11/15/21 Date of admission: 11/13/21 02:30 Primary care physician: Unknown Physician Consults: 11/13/21 03:11 Consult to Nephrology Stat Consulting Provider: Lashay Garza Reason for consultation: emergent dialysis Has provider been notified: Yes 11/13/21 16:04 Consult to Cardiology Routine Consulting Provider: [facility] [place] Cardiovascular Services Reason for consultation: VTach s/p cardioversion Has provider been notified: No DS: Diagnosis Discharge Diagnosis (1) Cardiomyopathy: Status: Acute (2) CAD (coronary artery disease): Status: Acute (3) Ventricular tachycardia: Status: Acute DS: Summary Hospital Course Hospital Course: History of present illness Date of admission 11/13/2021 Chief Complaint:? cardiac arrhythmia The patient is a 55-year-old? male? with past medical history of end-stage renal disease on hemodialysis (M,W,F), CAD status post CABG x3 with mitral valve annuloplasty,? diabetes mellitus, ischemic cardiomyopathy? and chronic right heel wound who? presented to the emergency room? via EMS after being found unresponsive.? According to EMS, the patient's found him unresponsive, pale and diaphoretic around midnight, ? when placed on? EKG rhythm showed V- tachycardia.? On arrival to the emergency room,? patient? systolic blood pressure in the low 80s, diaphoretic, pale,? lethargic,? pulse present and rhythm was sustained V-tach heart rate to 200s.? He was emergently cardioverted? with 120 joules. ? After cardioversion the patient is hemodynamically stable and asymptomatic.? Cardiology was consulted by ED physician,? and advised to start patient on amiodarone, heparin? drip and to keep it for defibrillation pads on.? ?Laboratory data was significant for WBC 22.1,? hemoglobin 10.6, hematocrit 34,? potassium 5.4, serum bicarb 12, anion gap 37, BUN 26, creatinine 7.39, lactic acid 14.2, total bilirubin 1.4, AST 244, ALT 155, alk-phos 146, BNP 558, albumin 3.4 Imaging:? Chest? x-ray:? no acute findings EKG monomorphic ventricular tachycardia Hospital course 55-year-old? male? with past medical history of end-stage renal disease on hemodialysis (M,W,F), CAD status post CABG x3 with mitral valve annuloplasty,? diabetes mellitus, ischemic cardiomyopathy? and chronic right heel wound who? presented to the emergency room? via EMS after being found unresponsive.? According to EMS, the patient's found him unresponsive, pale and diaphoretic around midnight, EKG rhythm showed V-tachycardia.? On arrival to the emergency room,? patient? systolic blood pressure in the low 80s, diaphoretic, pale,? lethargic,? pulse present and rhythm was sustained V-tach heart rate to 200s.? He was emergently cardioverted? with 120 joules. ? After cardioversion the patient was hemodynamically stable and asymptomatic was started on amiodarone,iv heparin? drip and, subsequently patient admitted to intensive care, since noted to have hypotension required treatment with Levophed, patient noted to have lactic acidosis, acute hypoxic respiratory failure and elevated LFTs , all felt to be related to poor perfusion, since pa milli remained hemodynamically stable was transferred to intermediate care unit.. Problem list Sustained ventricular tachycardia status post cardioversion, currently on iv heparin drip, amiodarone discontinued due to elevated LFTs, patient remains hemodynamically stable and asymptomatic with no chest pain, no shortness of breath , troponin within normal range, an echocardiogram showed an EF 35-40% mildly increased right ventricular cavity size, patient also noted to have abnormal diastolic function, patient evaluated by profile saw operator Dr. Means and he is being transferred to [facility] for cardiac catheterization for ischemic evaluation, and would need electrophysiology input for secondary prevention ICD. Patient noted to have Lactic acidosis likely due to poor perfusion, that normalized with IV fluids Transaminitis LFTs trending down no abdominal pain, tolerating diet likely due to shock liver, LFTs were elevated prior to starting amiodarone, recommend to follow-up on liver panel, continue to improve may start amiodarone Infected Right heel wound/gangrene , x-rays of foot showed no evidence of osteomyelitis, no fevers, significant leukocytosis, on IV vanco and Zosyn will need vascular surgery evaluation End-stage renal disease continue hemodialysis Tuesday and Tuesday Diabetes mellitus on insulin, blood sugars stable will hold Lantus continue insulin sliding scale, diabetic diet, monitor blood sugar q.i.d./ac Coronary artery disease status post CABG x3 with mitral valve annuloplasty patient on Eliquis and metoprolol at home,eliquis held since patient on IV heparin DVT prophylaxis on iv heparin drip Time Spent with Patient Time attestation: Total time spent providing and/or coordinating discharge services: Discharge coordination time: Greater than 30 minutes Quality: Safe Use of Opioids Does Pt have an Active Cancer Diagnosis on the Problem List?: No Quality: Stroke Does the patient have a stroke diagnosis?: No Physical Exam Vital Signs: Vital Signs: Last Vital Signs Temp 97.7 F 11/15/21 07:14 Pulse 60 11/15/21 07:14 Resp 20 11/15/21 07:14 BP 105/35 L 11/15/21 07:14 Pulse Ox 60 L 11/15/21 07:14 O2 Del Method 11/15/21 07:14 O2 Flow Rate 4 11/13/21 09:00 Oxygen Flow Rate 4 11/13/21 02:30 BMI result Body Mass Index 31.0 Const: Other: General patient awake alert, resting comfortably in no acute distress. Neck supple no JVD. CVS regular rate rhythm, Respiratory lungs clear to auscultation, no respiratory distress, no wheeze, no rhonchi. Gastrointestinal abdomen soft, nontender, bowel sounds audible, no guarding , no rigidity. Right lower Extremities swelling up to mid calf, right heel gangrenous, no foul drainage, nontender. Neuro decreased sensation both feet, normal strength and tone, speech clear Skin no rash Psych appropriate affect DS: Data Data Completed and Pending Labs on day of discharge: Laboratory Results - last 24 hr 11/14/21 11/14/21 11/15/21 17:27 21:15 05:11 WBC RBC Hgb Hct MCV MCH MCHC RDW Plt Count MPV Immature Gran % (Auto) Neut % (Auto) Lymph % (Auto) [place] % (Auto) Eos % (Auto) Baso % (Auto) Lymph # (Auto) [place] # (Auto) Eos # (Auto) Baso # (Auto) Abs Immat Gran (auto) Absolute Neuts (auto) Absolute Nucleated RBC Nucleated RBC % (auto) aPTT Heparin Protocol 80.1 H Sodium Potassium Chloride Carbon Dioxide Anion Gap BUN Creatinine Estim Creat Clear Calc Estimated GFR POC Glucose 149 H 119 H Random Glucose Calcium Total Bilirubin AST ALT Alkaline Phosphatase Total Protein Albumin 11/15/21 11/15/21 11/15/21 05:11 05:11 07:04 WBC 20.5 H RBC 2.89 L Hgb 8.4 L Hct 25.7 L MCV 88.9 MCH 29.1 MCHC 32.7 RDW 13.2 Plt Count 151 L MPV 11.1 Immature Gran % (Auto) 4.5 H Neut % (Auto) 86.0 H Lymph % (Auto) 5.8 L [place] % (Auto) 2.8 Eos % (Auto) 0.5 Baso % (Auto) 0.4 Lymph # (Auto) 1.2 [place] # (Auto) 0.6 Eos # (Auto) 0.1 Baso # (Auto) 0.1 Abs Immat Gran (auto) 0.92 H Absolute Neuts (auto) 17.6 H Absolute Nucleated RBC 0.130 H Nucleated RBC % (auto) 0.6 H aPTT Heparin Protocol Sodium 134 L Potassium 4.3 Chloride 95 L Carbon Dioxide 20 L Anion Gap 23 H BUN 63 H D Creatinine 7.46 H* Estim Creat Clear Calc 11.9 Estimated GFR 8 POC Glucose 124 H Random Glucose 138 H Calcium 8.6 Total Bilirubin 1.9 H AST 1794 H ALT 2120 H Alkaline Phosphatase 185 H Total Protein 6.1 L Albumin 2.8 L Preliminary micro results at discharge 11/13/21 03:34 Blood Culture - Preliminary Blood - Venous No growth after 48 hours. 11/13/21 03:34 Blood Culture - Preliminary Blood - Venous No growth after 48 hours. Discharge Plan Discharge Patient Disposition: [facility] Discharge Diagnosis: Unstable sustained ventricular tachycardia Hypotension Right heel infected wound Transaminitis Lactic acidosis Referrals: Physician,Unknown J [Primary Care Provider] - 1 Week Discharge Medications: New piperacillin-tazobactam 2.25 gram Recon Soln 2.25 g IV Q8H Qty: 1 0RF dextrose [Glutose-15] 40 % Gel 15 g PO Q15M PRN (Reason: Per Hypoglycemia Standing Ord.) Qty: 112.5 0RF Protocol: Glucose Gel Hypoglycemia Standing Order Protocol Text: For patients able to take PO (patient cooperative and able to swallow). Give Glucose Gel 15 gm PO for Blood Glucose (BG) < 70. Repeat BG every 15 min until BG > 70 x 3, if BG still < 70 and/or patient symptomatic repeat glucose gel or rapid acting carbohydrate. Notify MD if BG does not improve with treatment. heparin(porcine) in 0.45% NaCl 25,000 unit/250 mL Parenteral Solution 25,000 unit continuous IV infusion .Q0M 1 Days Qty: 1 0RF insulin lispro [Humalog U-100 Insulin] 100 unit/mL Solution See Protocol subcut QIDACHS Qty: 1 0RF Protocol: Insulin Correction Scale Less than or equal to 110 ---- Give (units): 0 111 to 150 Give (units): 0 151 to 200 Give (units): 2 201 to 250 Give (units): 4 251 to 300 Give (units): 6 301 to 350 Give (units): 8 Greater than 350 Give (units): 10 Call MD if Blood Glucose > : 350 Continued metoprolol succinate 50 mg tablet extended release 24 hr 1 tab PO DAILY lidocaine-prilocaine 2.5-2.5 % cream 1 appl topical DAILY PRN (Reason: Analgesia) pantoprazole 40 mg tablet,delayed release (DR/EC) 1 tab PO DAILY@0630 aspirin 81 mg Tablet,Delayed Release (Dr/Ec) 81 mg PO DAILY acetaminophen 500 mg Tablet 500 - 1,000 mg PO Q6H PRN (Reason: Pain) cholecalciferol (vitamin D3) [Vitamin D3] 25 mcg (1,000 unit) Tablet 25 mcg PO DAILY atorvastatin 40 mg tablet 1 tab PO DAILY clotrimazole 2 % Cream 1 appl topical DAILY Discontinued insulin glargine [Lantus Solostar U-100 Insulin] 100 unit/mL (3 mL) insulin pen 40 unit subcut BEDTIME Eliquis 5 mg tablet 1 tab PO DAILY Discharge Orders: Discharge Order (Routine); Ordered 11/15/21 Ordered By: Nayyer Ghias Diet: Low fat, low cholesterol Activity on Discharge: As tolerated Stand Alone Forms: Patient Portal Discharge page Care Plan Goals: Sustained ventricular tachycardia status post cardioversion continue IV heparin , infected right heel chronic wound need surgical evaluation, blood sugars stable continue insulin sliding scale Health Concerns: Home medication Eliquis held resume as per Cardiology recommendation Plan of Treatment: Transferred to [facility] for cardiac catheterization Assessment: As per discharge summary Discharge Date/Time: 11/15/21 14:21
[2021-11-15] MEDS: Amiodarone HCL 200 MG TABLET PO (10:10)
[2021-11-15 10:13] VITALS: BP 126/52; PULSE 68
[2021-11-15 11:34] LABS: Glucose, Whole Blood 132 mg/dL (60-115)
[2021-11-15 11:36] VITALS: BP 128/52; PULSE 65; RESP 14; TEMP 36.5; O2SAT 98
[2021-11-15 12:00] LABS: PTT Heparin Drip 65.5 SEC (53-77.9)
--- NOTE | 2021-11-15 12:05 | PM.PNCARD ---
Subjective Subjective Date of Service: 11/15/21 Interval history: Patient seen examined at bedside. Telemetry reviewed. No further ventricular tachycardia. Echocardiography has shown ejection fraction of 35-40%. He also has moderate to severe right ventricular dysfunction. Physical Exam Vital Signs: Last Vital Signs Temp 97.7 F 11/15/21 11:36 Pulse 65 11/15/21 11:36 Resp 14 11/15/21 11:36 BP 128/52 L 11/15/21 11:36 Pulse Ox 98 11/15/21 11:36 O2 Del Method 11/15/21 11:36 O2 Flow Rate 4 11/13/21 09:00 Oxygen Flow Rate 4 11/13/21 02:30 BMI result Body Mass Index 31.0 GENERAL APPEARANCE: in no acute distress, pleasant. NECK: no carotid bruit, no jugular venous distention. SKIN: Midline sternotomy scar. Chronic right heel wound. HEART: no murmurs, regular rate and rhythm. LUNGS: clear to auscultation bilaterally. ABDOMEN: soft, nontender. EXTREMITIES: no edema. Left arm dialysis fistula. NEUROLOGIC: No gross deficits, AAO X 3 Objective Labs and Meds Result diagrams: 11/15/21 05:11 11/15/21 05:11 Lab results: Laboratory Results - last 24 hr 11/14/21 11/14/21 11/15/21 17:27 21:15 05:11 WBC RBC Hgb Hct MCV MCH MCHC RDW Plt Count MPV Immature Gran % (Auto) Neut % (Auto) Lymph % (Auto) [place] % (Auto) Eos % (Auto) Baso % (Auto) Lymph # (Auto) [place] # (Auto) Eos # (Auto) Baso # (Auto) Abs Immat Gran (auto) Absolute Neuts (auto) Absolute Nucleated RBC Nucleated RBC % (auto) aPTT Heparin Protocol 80.1 H Sodium Potassium Chloride Carbon Dioxide Anion Gap BUN Creatinine Estim Creat Clear Calc Estimated GFR POC Glucose 149 H 119 H Random Glucose Calcium Total Bilirubin AST ALT Alkaline Phosphatase Total Protein Albumin 11/15/21 11/15/21 11/15/21 05:11 05:11 07:04 WBC 20.5 H RBC 2.89 L Hgb 8.4 L Hct 25.7 L MCV 88.9 MCH 29.1 MCHC 32.7 RDW 13.2 Plt Count 151 L MPV 11.1 Immature Gran % (Auto) 4.5 H Neut % (Auto) 86.0 H Lymph % (Auto) 5.8 L [place] % (Auto) 2.8 Eos % (Auto) 0.5 Baso % (Auto) 0.4 Lymph # (Auto) 1.2 [place] # (Auto) 0.6 Eos # (Auto) 0.1 Baso # (Auto) 0.1 Abs Immat Gran (auto) 0.92 H Absolute Neuts (auto) 17.6 H Absolute Nucleated RBC 0.130 H Nucleated RBC % (auto) 0.6 H aPTT Heparin Protocol Sodium 134 L Potassium 4.3 Chloride 95 L Carbon Dioxide 20 L Anion Gap 23 H BUN 63 H D Creatinine 7.46 H* Estim Creat Clear Calc 11.9 Estimated GFR 8 POC Glucose 124 H Random Glucose 138 H Calcium 8.6 Total Bilirubin 1.9 H AST 1794 H ALT 2120 H Alkaline Phosphatase 185 H Total Protein 6.1 L Albumin 2.8 L 11/15/21 11/15/21 11:30 11:45 WBC RBC Hgb Hct MCV MCH MCHC RDW Plt Count MPV Immature Gran % (Auto) Neut % (Auto) Lymph % (Auto) [place] % (Auto) Eos % (Auto) Baso % (Auto) Lymph # (Auto) [place] # (Auto) Eos # (Auto) Baso # (Auto) Abs Immat Gran (auto) Absolute Neuts (auto) Absolute Nucleated RBC Nucleated RBC % (auto) aPTT Heparin Protocol 65.5 Sodium Potassium Chloride Carbon Dioxide Anion Gap BUN Creatinine Estim Creat Clear Calc Estimated GFR POC Glucose 132 H Random Glucose Calcium Total Bilirubin AST ALT Alkaline Phosphatase Total Protein Albumin Progress Note: A&P Assessment and plan (1) Cardiomyopathy: Status: Acute (2) CAD (coronary artery disease): Status: Acute (3) Ventricular tachycardia: Status: Acute Plan Pleasant 56-year-old gentleman with background history of coronary disease with bypass surgery and mitral valve surgery. He is presenting for sustained ventricular tachycardia and was cardioverted in the emergency department. He has been on amiodarone since then and is stable. He has significantly elevated liver enzymes which are downtrending currently. I think amiodarone should be held for now. Should have repeat LFTs and amiodarone be resumed if LFTs improving further. If recurrent episodes and mexiletine can be tried. He has been on heparin drip since admission. We will transfer him to [facility] for further assessment including left and right heart catheterization and if no obvious ischemic cause found then consideration for defibrillator. He has chronic right heel wound for which he follows with [facility] wound clinic. He will need consult by them there. He is on antibiotics currently. Thank you for allowing me to participate in the care of your patient. Please feel free to contact me if you have any questions. Time Spent With Patient Time: Total time spent is greater than 50% in coordination of care (as documented) at patient's floor/unit and/or counseling patient: Progress Note: Quality Stroke Does the patient have a stroke diagnosis?: No Procedures Date of Service Date of Service: 11/15/21
== END 2021-11-15 14:21 | disposition short-term general hospital (02) | DRG 308 ==
LOC: HO.ED 02:27 → HO.EDOVER 02:35 → HO.ICU 04:18
PROVIDERS: Internal Medicine Pulmonary Disease; Student in an Organized Health Care Education/Training Program; Admitting Provider Registered Nurse Community Health; Emergency Provider Emergency Medicine; Visit Provider Hospitalist
DX: I47.2 Ventricular tachycardia (principal); J96.01 Acute respiratory failure with hypoxia; N18.6 End stage renal disease; K72.00 Acute and subacute hepatic failure without coma; E87.2 Acidosis; L97.419 Non-pressure chronic ulcer of right heel and midfoot with unspecified severity; E11.52 Type 2 diabetes mellitus with diabetic peripheral angiopathy with gangrene; I25.10 Atherosclerotic heart disease of native coronary artery without angina pectoris; I34.0 Nonrheumatic mitral (valve) insufficiency; E11.22 Type 2 diabetes mellitus with diabetic chronic kidney disease; D72.829 Elevated white blood cell count, unspecified; E11.621 Type 2 diabetes mellitus with foot ulcer; Z95.1 Presence of aortocoronary bypass graft; I25.5 Ischemic cardiomyopathy; I95.9 Hypotension, unspecified; Z99.2 Dependence on renal dialysis; Z20.822 Contact with and (suspected) exposure to COVID-19; Z79.4 Long term (current) use of insulin; Z79.82 Long term (current) use of aspirin; Z79.899 Other long term (current) drug therapy
CPT/HCPCS: 36415; 71045; 73620; 80048; 80053; 80076; 80202; 82803; 82947; 83605; 83735; 83880; 84100; 84484; 85007; 85025; 85027; 85610; 85730; 87040; 87635; 90999; 93005; 93306; 96365; 96375; 99285; J0282; J0610; J2543; J3010; J3370

== ENCOUNTER 2022-03-16 09:41 | Outpatient (REF) | payer OTHER, SELFPAY ==
[2022-03-16 11:28] LABS: MANUAL DIFF FLAG NO
[2022-03-16 11:38] LABS: Basophils Absolute Auto 0.1 X10*3/uL (0.0-0.2); Basophils Percent Auto 0.5 % (0-2); Eosinophils Absolute Auto 0.2 X10*3/uL (0.0-0.4); Eosinophils Percent Auto 1.4 % (0-4); Hematocrit 29.4 % (42.0-52.0); Hemoglobin 8.9 g/dl (14.0-18.0); Imm Gran Abs Auto 0.27 X10*3/uL (0.00-0.03); Imm Gran Pct Auto 2.2 % (0.0-0.4); Lymphocytes Absolute Auto 1.4 X10*3/uL (1.2-4.9); Lymphocytes Percent Auto 11.6 % (20-40); Mean Corpuscular HGB Conc 30.3 g/dl (31.0-36.0); Mean Corpuscular Hemoglobin 27.1 pg (27.0-33.0); Mean Corpuscular Volume 89.4 fL (80.0-98.0); Mean Platelet Volume 9.7 fL (9.4-12.4); Monocytes Percent Auto 8.6 % (2-11); Neutrophils Absolute Auto 9.1 x10*3/uL (2.0-8.3); Neutrophils Percent Auto 75.7 % (45-73); Platelet Count 341 X10*3/uL (160-400); Red Blood Count 3.29 X10*6/uL (4.60-5.80)
[2022-03-16 14:00] LABS: Estimated Glomerular Filt Rate 9
[2022-03-16 14:03] LABS: Alanine Aminotransferase 6 U/L (0-40); Albumin Level 3.3 g/dL (3.5-5.0); Alkaline Phosphatase 126 U/L (39-117); Anion Gap 17 (12-20); Aspartate Amino Transferase 14 U/L (5-37); Blood Urea Nitrogen 45 mg/dL (9-16); Calcium 9.3 mg/dL (8.4-10.2); Carbon Dioxide 32 mmol/L (22-29); Chloride 97 mmol/L (96-108); Cholesterol 92 mg/dL; Glucose Fasting 110 mg/dL (60-99); HDL Cholesterol 23 mg/dL; LDL Cholesterol Calculated 55 mg/dl; Potassium 4.9 mmol/L (3.3-5.1); Sodium 141 mmol/L (135-145); TSH reflex Free T4 0.86 uIU/mL (0.32-4.0); Total Protein 7.1 g/dL (6.5-8.0); Triglycerides 72 mg/dL
[2022-03-16 14:18] LABS: Estimated Average Glucose 128 mg/dL; Hemoglobin A1c % 6.1 %
== END 2022-03-16 09:42 | disposition home or self-care (01) ==
LOC: HO.HMGCLDS 09:41
PROVIDERS: PCP Nurse Practitioner Family; Visit Provider Nurse Practitioner Family
DX: E11.9 Type 2 diabetes mellitus without complications (principal); I42.9 Cardiomyopathy, unspecified; N18.6 End stage renal disease; S91.309A Unspecified open wound, unspecified foot, initial encounter
CPT/HCPCS: 36415; 80053; 80061; 83036; 84443; 85025

== ENCOUNTER 2022-04-14 12:34 | Outpatient (REF) | payer OTHER, SELFPAY ==
[2022-04-14 14:01] LABS: MANUAL DIFF FLAG NO
[2022-04-14 14:05] LABS: Basophils Percent Auto 0.4 % (0-2); Eosinophils Absolute Auto 0.1 X10*3/uL (0.0-0.4); Eosinophils Percent Auto 0.9 % (0-4); Hematocrit 28.4 % (42.0-52.0); Hemoglobin 8.7 g/dl (14.0-18.0); Imm Gran Abs Auto 0.09 X10*3/uL (0.00-0.03); Imm Gran Pct Auto 0.8 % (0.0-0.4); Lymphocytes Absolute Auto 0.8 X10*3/uL (1.2-4.9); Lymphocytes Percent Auto 7.6 % (20-40); Mean Corpuscular HGB Conc 30.6 g/dl (31.0-36.0); Mean Corpuscular Hemoglobin 27.1 pg (27.0-33.0); Mean Corpuscular Volume 88.5 fL (80.0-98.0); Monocytes Absolute Auto 0.7 X10*3/uL (0.1-1.2); Monocytes Percent Auto 6.5 % (2-11); Neutrophils Absolute Auto 9.1 x10*3/uL (2.0-8.3); Neutrophils Percent Auto 83.8 % (45-73); Platelet Count 310 X10*3/uL (160-400); Red Blood Count 3.21 X10*6/uL (4.60-5.80); Red Cell Distribution Width 16.6 % (11.0-16.0); White Blood Count 10.9 X10*3/uL (4.8-10.8)
[2022-04-14 14:17] LABS: INTERNATIONAL NORM RATIO 1.3 (0.9-1.1); Prothrombin Time 15.4 SEC (10.0-13.1)
[2022-04-14 14:20] LABS: Estimated Average Glucose 97 mg/dL; Partial Thromboplastin Time 31.7 SEC (26.0-36.4)
[2022-04-14 14:42] LABS: Alanine Aminotransferase 12 U/L (0-40); Albumin Level 2.8 g/dL (3.5-5.0); Alkaline Phosphatase 144 U/L (39-117); Anion Gap 19 (12-20); Aspartate Amino Transferase 15 U/L (5-37); Bilirubin Total 0.7 mg/dL (0.0-1.0); Blood Urea Nitrogen 62 mg/dL (9-16); Calcium 9.2 mg/dL (8.4-10.2); Carbon Dioxide 29 mmol/L (22-29); Chloride 94 mmol/L (96-108); Estimated Glomerular Filt Rate 11; Glucose Random 110 mg/dL (60-115); Sodium 138 mmol/L (135-145); Total Protein 6.4 g/dL (6.5-8.0)
== END 2022-04-14 12:35 | disposition home or self-care (01) ==
LOC: HO.HMGCLDS 12:34
PROVIDERS: PCP Nurse Practitioner Family; Visit Provider Nurse Practitioner Family
DX: Z01.818 Encounter for other preprocedural examination (principal)
CPT/HCPCS: 36415; 80053; 83036; 85025; 85610; 85730